=== PATIENT | female | born 1990 | race Caucasian/White ===

== ENCOUNTER 2018-03-29 07:06 | Inpatient (IN) ==
[2018-03-29] MEDS ORDERED: LIDOCAINE 1% (10mg/ml) 2mL INJ PF SDV ID PRN (07:07)
[2018-03-29] MEDS ORDERED: OXYTOCIN DRIP 30 UNIT/500 ML ML IV PRN (07:07)
[2018-03-29] MEDS ORDERED: MAG-AL + SIM ORAL LIQUID 30ml PO PRN (07:07)
[2018-03-29] MEDS ORDERED: METHYLERGONOVINE 0.2 MG/ML INJECTION IM PRN (07:07)
[2018-03-29] MEDS ORDERED: CARBOPROST 250 MCG/ML INJECTION IM PRN (07:07)
[2018-03-29] MEDS ORDERED: ACETAMINOPHEN 500 MG TABLET PO PRN ×2 (07:07→15:07)
[2018-03-29] MEDS ORDERED: D5LR 1,000 ML IV PRN (07:07)
[2018-03-29] MEDS ORDERED: CALCIUM CARBONATE Chewable 500mg TABLET PO PRN (07:07)
[2018-03-29] MEDS ORDERED: LR 1,000 ML IV PRN (07:07)
--- OUTSIDE RECORDS SUMMARY | 2018-03-29 07:10 | External Medical Summary | Continuity of Care Document ---
:1990 Author Organization [facility] Address [address] [place], [place] [id number] Phone Care Team Providers Name Role Phone Yelitza Fay DO Unavailable Unavailable Allergies, Adverse Reactions, Alerts Substance Reaction Severity Status benzonatate Rash Unknown Active Medications Medication Instructions Dosage Effective Dates Status Comments (start - stop) Zantac 150 mg take 1 tablet by 150 MG - Active tablet ORAL route every day 28 mg take 1 tablet by Not Available - Active iron-800 mcg tablet oral route every day fluticasone 50 spray 1 spray by - Active mcg/actuation nasal intranasal route spray,suspension every day in each nostril Tums 200 mg calcium - Active (500 mg) chewable tablet Tylenol 325 mg take 1 tablet by - Active tablet oral route every 4 hours as needed as needed omeprazole 10 mg take 2 capsule by 20 MG - Active capsule,delayed oral route every release day before a meal Problems Condition Effective Dates (start - stop) Clinical Status 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) w/o abn findings Follow-Up, Routine - Encounter for suprvsn of normal - , second trimester 19 weeks gestation of - Routine Care, Primagravida 36 weeks gestation of - History of gastric restrictive surgery Pap Smear Screening, Cervix - Encounter for suprvsn of normal - , first trimester 10 weeks gestation of - Encounter for suprvsn of normal - , second trimester 14 weeks gestation of - Mastitis w/out abscess Encounter for initial prescription of other contraceptives Encounter for test, result - negative Enc for surveillance of implantable subdermal contraceptive Encounter for surveillance of other - contraceptives Routine Care, Primagravida 37 weeks gestation of - History of gastric restrictive surgery Routine Care, Primagravida 40 weeks gestation of - History of gastric restrictive surgery Routine Care, Primagravida 39 weeks gestation of - History of gastric restrictive surgery Routine Care, Primagravida 38 weeks gestation of - History of gastric restrictive surgery Encounter for suprvsn of normal - , second trimester 19 weeks gestation of - Active Irregular Bleeding Active Procedures Procedure Date OB Visit No Charge - [facility]SM CONSULTANT Results Test Name Date and Time Measure Units Reference Range Abnormal Flag Comments Unknown Advance Directives Directive Yes / No Effective Date File Name Unknown Encounters Encounter Practice Location Reason(s) Diagnoses Date Provider Care Team Description For Visit Members Roshan Avalos Encounter for Nov-0 Pamella Referring In Womens suprvsn of normal 3-201 Jeanie. Provider: Alexander RAHMAN, , second [address], [address] [email or web address] weeks Medical [address], gestation of [facility] [place], [place], [place], 120, [place], [id number], [place], [address]. [place], tel: tel: [phone] , [place]. tel: [phone] Roshan Avalos Encounter for Nov-0 Pamella Referring In Womens Ultrasound suprvsn of normal 3-201 Jeanie. Provider: Alexander RAHMAN, , second [address], [address] [email or web address] weeks Medical [address], gestation of [facility] [place], [place], [place], 120, [place], [id number], [place], [address]. [place], tel: tel: [phone] , [place]. tel: [phone] Roshan Avalos Encounter for Nov-2 Pamella Referring In Womens suprvsn of normal 9-201 Jeanie. Provider: Health LACEY, , second [address] [email or web address] weeks Medical [address], gestation of [facility] [place], Darren Ad[place], 120, [place], [id number], [place], [address]. [place], tel: tel:[phone] , [place]. tel: [phone] Roshan Avalos Pap Smear Nov-0 Pamella Referring In Womens Screening, 1-201 Jeanie. Provider: Alexander RAHMAN, CervixEncounter [address], PO Box for suprvsn of Medical [address], normal , [facility] [place], first [id number] Darren [place], weeks gestation 120, [place], [id number], [place], [address]. [place], tel: tel: [phone] [facility] , [place]. tel: [phone] Roshan Avalos Enc for Tee-1 Pamella Referring In Womens surveillance of 9-201 Ejanie. Provider: Alexander RAHMAN, implantable [address], PO Box subdermal Medical [address], contraceptiveEnco [facility] [place], unter for [place], surveillance of 120, [place], [id number], [place], [address]. [place] contrace[place]ives [place], tel: tel: [phone] , [place]. tel: [phone] Roshan Avalos Mastitis w/out May-2 Pamella Referring In Womens abscess 6-201 Jeanie. Provider: Alexander RAHMAN, [address], PO Box Medical [address], [facility] [place], [place], [place], 120, [place], [id number], [place], [address]. [place], tel: tel: [phone] , . 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 Provider: Alexander RAHMAN, (routine) w/o abn [address], PO Box findings Medical [address], Center [address] Tori, [place], [place], 120, [place], [id number], [place], [address]. [place], tel: tel: [phone] , [place]. tel: [phone] Roshan Avalos Sep-0 Martínez Referring In Womens 7-201 [place]. Provider: Alexander RAHMAN, [address], PO Box Medical [address], [address] Tori, [place], [place], 120, [place], [id number], [place], [address]. [place], tel: tel: [phone] , [place]. tel: [phone] Roshan Avalos Encounter for Dec-3 Pamella Referring In Womens initial 0-201 Jeanie. Provider: Alexander RAHMAN, prescription of [address], PO Box other Medical [address], contraceptivesEnc Center Carriage arcenio [address]le for , [place], [place], test, 120, [place], [id number], [place], [address]. [place], tel: tel: [phone] , [place]. tel: [phone] Roshan Avalos Dec-1 Pamella Referring In Womens Follow-Up, 4-201 Jeanie. Provider: Alexander RAHMAN, Routine [address], PO Box Medical [address], Center [address] Tori, [place], [place], 120, [place], [id number], [place], [address]. [place], tel: tel: [phone] , [place]. tel: [phone] Roshan Avalos Routine Care, Nov-0 Pamella Referring In Womens [id number] 5-201 Jeanie. Provider: Health [place], weeks gestation 5 [address], [address] Box of Medical [address], pregnancyHistory Center Carriage [address], [address] [place], restrictive 120, [place], [id number], [place], [address]. [place], tel:+ tel: [phone] , [place]. tel: [phone] Roshan Avalos Routine Care, Oct-2 Pamella Referring In Womens [id number] 7-201 Jeanie. Provider: Health LACEY, weeks gestation 5 [address], PO Box of Medical [address], pregnancyHistory Center [facility] [address], [address] [place], restrictive 120, [place], [id number], [place], [address]. [place], tel:+ tel: [phone] , [place]. tel: [phone] Roshan Avalos Routine Care, Aug-2 Pamella Referring In Womens [id number] 0-201 Jeanie. Provider: Health LACEY, weeks gestation 5 [address], PO Box of Medical [address], pregnancyHistory [address] [facility]riage [address], [address] [place], restrictive 120, [place], , [place], [address]. [place], tel:+ tel: [phone] , [place]. tel: [phone] Roshan Avalos Routine Care, Aug- Pamella Referring In Womens [id number] 3-201 Jeanie. Provider: Health LACEY, weeks gestation 5 [address], PO Box of Medical [address], pregnancyHistory [facility]riage [address], [address] [place] [place], restrictive 120, [place], [id number], [place], [address]. [place], tel:+ tel: [phone] , [place]. tel: [phone] Roshan Avalso Routine Care, Oct-0 Pamella Referring In Womens [id number] 6-201 Jeanie. Provider: Health LACEY, weeks gestation 5 [address], PO Box of Medical [address], pregnancyHistory Center [facility] [place], [facility] , Darren Lemus, [place], restrictive 120, [place], [id number], [place], [address]. [place], tel: tel: [phone] , [place]. tel: [phone] Roshan Avalos Sep-2 Pamella Referring In Womens 2-201 Jeanie. Provider: Alexander RAHMAN, 5 700 Jeanie PO Box Medical Pamella L, 15[address], Center [address], [facility], 120, [place] , [facility] 120, [place], tel: [phone] [place], , [place]. [id number]. tel: tel: [phone] Roshan Avalos Sep-1 [place] Referring In Womens 0-201 Rosemary. Provider: Alexander RAHMAN, 5 700 Jeanie PO Box Medical Pamella L, 1522, Center [address], [facility], 120, [place] , [facility] 120, [place], tel: [phone] [place], , [place]. [id number]. tel: tel: [phone] Roshan Avalos Apr-0 Pamella Referring In Womens 8-201 Jeanie. Provider: Health LACEY, [address], PO Box Medical [address], [address] Tori, [place], [place], 120, [place], [id number], [place], [address]. [facility], tel:+ tel: [phone] , [place]. tel: [phone] Family History Family Member Diagnosis Age At Onset Maternal Grandmother Diabetes mellitus No family history of Venous Thrombosis Brother Thyroid Disorder No family history of Epilepsy No family history of Pulmonary Embolism Maternal Grandmother Leukemia No family history of Colon Cancer Mother Thyroid Disorder No family history of Kidney Disease No family history of Lung Disease No family history of Ovarian Cancer No family history of Osteoporosis Paternal Grandfather Diabetes mellitus No family history of Uterine Cancer No family history of Breast Cancer No family history of Stroke No family history of Hypertension No family history of Cardiovascular Disease Paternal Grandmother Brain tumor Immunizations Vaccine Date Status Comments Influenza, injectable, completed Source: Other Provider quadrivalent, preservative free, 3 yrs or older Influenza, seasonal, injectable, completed Source: New Immunization Record preservative free, 3 yrs or older Tdap completed Source: New Immunization Record Payers Payer name Insurance type Covered alliance party ID Authorization(s) [employer] - Medicaid MC [id number] [facility] [id number] [facility] [id number] Social History Type Description Quantity Date Captured Alcohol Use Details No Caffeine Use Details Unknown Tobacco Use Status Smoking Status Former smoker Vital Signs Date / Height Weight BMI Pulse Blood Temperature Respiratory Body Head BMI Time: Rate Pressure Rate Surface Circumference percentile Area 202.60 29.9 101/74 -2018 lbs 2 mm[Hg] 10:40 kg/m AM eter (2) 202.60 29.9 -2018 lbs 2 10:40 kg/m AM eter (2) Chief Complaint And Reason For Visit Unknown Chief Complaint And Reason For Visit Reason For Referral Reason For Referral Unknown Plan Of Care Date Type Action Status Goal Lifestyle education regarding completed diet Appointment Lora [place] BOOKED Future Order: Radiology Order Complete OB Ultrasound > 14 Ordered Weeks (12291) Future Order: Lab Order Pap Smear With HPV Reflex If Ordered ASCUS (WPMPap1) Date Type Problem Goal Intervention Status Start Date Unknown. History Of Present Illness Encounter Date Complaint History Of Present Illness This patient has no known history of present illness Functional Status Encounter Date Functional Assessment Cognitive Assessment Unknown Medications Administered Medication Instructions Dosage Effective Dates (start - stop) Status Comments Drug Treatment Unknown Instructions Date Instruction Additional Information HIV and other routine tests risk factors identified by history anticipated course of care nutrition and weight gain counseling, special diet toxoplasmosis precautions (cats / raw meat) sexual activity exercise indications for ultrasound influenza vaccine environmental / work hazards travel illicit / recreational drugs use of any medications (including supplements, vitamins, herbs, OTC drugs) domestic violence seat belt use childbirth classes / hospital facilities hospital registration genetic testing Giving encouragement to exercise Related to Body mass index 30.0-30.9 Giving encouragement to exercise Related to Body mass index 29.0-29.9 Lifestyle education regarding diet Related to Body mass index 29.0-29.9 nutrition and weight gain counseling, special diet toxoplasmosis precautions (cats / raw meat) sexual activity exercise indications for ultrasound influenza vaccine environmental / work hazards travel tobacco (ask, advise, assess, assist and arrange) alcohol illicit / recreational drugs use of any medications (including supplements, vitamins, herbs, OTC drugs) smoking counseling domestic violence seat belt use childbirth classes / hospital facilities HIV and other routine tests risk factors identified by history anticipated course of care hospital registration genetic testing new ob handbook
--- OUTSIDE RECORDS SUMMARY | 2018-03-29 07:10 | External Medical Summary | Continuity of Care Document ---
:1990 Author Organization [email or web address] Address [address] [place], [place] [phone] Phone Care Team Providers Name Role Phone Yelitza Fay DO Unavailable Unavailable Allergies, Adverse Reactions, Alerts Substance Reaction Severity Status benzonatate Rash Unknown Active Medications Medication Instructions Dosage Effective Dates Status Comments (start - stop) fluticasone 50 spray 1 spray by Not Available - Active mcg/actuation nasal intranasal route spray,suspension every day in each nostril Tylenol Extra take 2 tablet by 1000 MG - Active Strength 500 mg oral route every 6 tablet hours as needed Tums 200 mg calcium - Active (500 mg) chewable tablet [place] 5 mg-325 mg take 1 tablet by Not Available - Active tablet oral route every 6 hours as needed for pain Problems Condition Effective Dates (start - stop) Clinical Status 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) - (routine) w/o abn findings Follow-Up, Routine - Enc for surveillance of implantable subdermal contraceptive Encounter for surveillance of other - contraceptives Routine Care, Primagravida 36 weeks gestation of - History of gastric restrictive surgery Mastitis w/out abscess Encounter for initial prescription of other contraceptives Encounter for test, result - negative Routine Care, Primagravida 37 weeks gestation of - History of gastric restrictive surgery Routine Care, Primagravida 40 weeks gestation of - History of gastric restrictive surgery Routine Care, Primagravida 39 weeks gestation of - History of gastric restrictive surgery Routine Care, Primagravida 38 weeks gestation of - History of gastric restrictive surgery Active Irregular Bleeding Active Procedures Procedure Date Remove n-biodgrad drug del implant No Charge Office Visit Results Test Name Date and Time Measure Units Reference Range Abnormal Flag Comments Unknown Advance Directives Directive Yes / No Effective Date File Name Unknown Encounters Encounter Practice Location Reason(s) Diagnoses Date Provider Care Team Description For Visit Members Roshan Avalos Nexplanon Enc for Pamella Referring In Womens removal surveillance of Jeanie. Provider: Alexander RAHMAN, (chief implantable [address], PO Box complaint) subdermal Medical [address], contraceptiveEncoun Center [facility]riage [place] for , [place], [place], surveillance of 120, [place], , [place], [address]. [place] contrace[place]ives [place], tel:+ tel: [phone] , [place]. tel: [phone] Roshan Staples w/out Pamella Referring In Womens abscess 6-201 Jeanie. Provider: Alexander RAHMAN, [address], PO Box Medical [address], [address] Tori, [place], [place], 120, [place], , [place], [address]. [place], tel:+ tel: [phone] , [place]. 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 Provider: Alexander RAHMAN, w/o abn findings [address], PO Box Medical [address], [address] Tori, [facility] [place], [place], 120, [place], , [place], [address]. [place], tel:+ tel:[phone] , [place]. tel: [phone] Roshan Avalos Sep-0 Martínez Referring In Womens 7-201 [place]. Provider: Alexander RAHMAN, [address], PO Box Medical [address], Center [address] Tori, [place], [place], 120, [place], [id number], [place], [address]. [place], tel:+ tel: [phone] , [place]. tel: [phone] Roshan Avalos Encounter for Dec-3 Pamella Referring In Womens initial 0-201 Jeanie. Provider: Alexander RAHMAN, prescription of [address], PO Box other Medical [address], contraceptivesEncou Center [facility]riage [place], nter for , Darren [place], test, result 120, [place], [id number], [place], [address]. [place], tel:+ tel: [phone] , [place]. tel: [phone] Roshan Avalos Dec-1 Pamella Referring In Womens Follow-Up, Routine 4-201 Jeanie. Provider: Alexander RAHMAN, [address], PO Box Medical [address], Center [address] Tori, [place], [place], 120, [place], [id number], [place], [address]. [place], tel: tel: [phone] , [place]. tel: [phone] Roshan Avalos Routine Care, Nov-0 Pamella Referring In Womens [id number] 5-201 Jeanei. Provider: Alexander RAHMAN, weeks gestation of 5 [address], PO Box pregnancyHistory of Medical [address], gastric restrictive [facility] [place], surgery , [place], [place], 120, [place], [id number], [place], [address]. [place], tel: tel: [phone] , [place]. tel: [phone] Roshan Avalos Routine Care, Oct-2 Pamella Referring In Womens [id number] 7-201 Jeanie. Provider: Alexander RAHMAN, weeks gestation of [address], PO Box pregnancyHistory of Medical [address], gastric restrictive [facility] [place], surgery , [place], [place], 120, [place], [id number], [place], [address]. [place], tel:+ tel: [phone] , [place]. tel: [phone] [facility] [place] Routine Care, Oct-2 Pamella Referring In Womens [id number] 0-201 Jeanie. Provider: Alexander RAHMAN, weeks gestation of 5 [address], PO Box [facility] [address], gastric restrictive [facility] [place], surgery , [place], [place], 120, [place], [id number], [place], [address]. [place], tel:+ tel: [phone] , [place]. tel: [phone] Roshan Avalos Routine Care, Oct-1 Pamella Referring In Womens [id number] 3-201 Jeanie. Provider: Alexander RAHMAN, weeks gestation of 5 [address], PO Box pregnancyHistory of [facility] [address], gastric restrictive [facility] Carriage [place], surgery , [place], [place], 120, [place], [id number], [place], [address]. [place], tel:+ tel: [phone] , [place]. tel: [phone] Roshan Avalos Routine Care, Oct-0 Pamella Referring In Womens [id number] 6-201 Jeanie. Provider: Alexander RAHMAN, weeks gestation of [address], PO Box pregnancyHistory of [facility] [address], gastric restrictive [facility]riage [place], surgery , [place], [place], 120, [place], [id number], [place], [address]. [place], tel:+ tel: [phone] , [place]. tel: [phone] Roshan Avalos Sep-2 Pamella Referring In Womens 2-201 Jeanie. Provider: Alexander RAHMAN, 5 700 Jeanie PO Box Medical Pamella L, 1522, Center [address] [place], Dr, [facility], 120, [place] [id number], [facility] 120, [place], tel: [phone] [place], , [place]. [id number]. tel: tel: [phone] [facility] [place] Jul- Tata Referring In Womens 0-201 Rosemary. Provider: [facility], 5 700 Jeanie [facility] Pamella L, 1522, Center [address], [facility], 120, [place] [id number], [facility] 120, [place], tel: [phone] [place], , [place]. [id number]. tel: tel: [phone] [facility] [place] Feb- Pamella Referring In Womens 8-201 Jeanie. Provider: [facility], [address], [facility] [address], [place] [address], [place], [place], 120, [place], [id number], [place], [address]. [place], tel: tel: [phone] , [place]. tel: [phone] Family History Family Member Diagnosis Age At [...] tumor Immunizations Vaccine Date Status Comments Influenza, seasonal, injectable, completed Source: New Immunization Record preservative free, 3 yrs or older Tdap completed Source: New Immunization Record Payers Payer name Insurance type Covered alliance party ID Authorization(s) [employer] - Medicaid MC [id number] [facility] [id number] [facility] [id number] Social History Type Description Quantity Date Captured Alcohol Use Details Unknown Caffeine Use Details Unknown Tobacco Use Status Smoking Status Former smoker Vital Signs Date / Height Weight BMI Pulse Blood Temperature Respiratory Body Head BMI Time: Rate Pressure Rate Surface Circumference percentile Area 70.00 212.70 30.5 74 107/70 2017 in lbs 2 /min mm[Hg] 1:24 kg/m PM eter (2) Chief Complaint And Reason For Visit Most recent encounter only, dated '05/24/2017 13:15'. Nexplanon removal ( chief complaint). Description: Patient needs routine follow-up for contraception. Her current method of contraception is Nexplanon. She is not having any problems. She pleased withher current method of contraception. She had gonorrhea and chlamydia cultures (Neg/Neg) on 02/11/2015. There are no pertinent negatives. She'd like to conceive again. Reviewed removal procedure, potential risks. Encouraged folic acid supplement. Reason For Referral Reason For Referral Unknown Plan Of Care Date Type Action Status Goal Lifestyle education regarding diet completed Future Order: Lab Order Pap Smear With HPV Reflex If ASCUS Ordered (WPMPap1) Date Type Problem Goal Intervention Status Start Date Unknown. History Of Present Illness Encounter Date Complaint History Of Present Illness Nexplanon removal Patient needs routine follow-up for contraception. Her current method of contraception is Nexplanon. She is not having any problems. She pleased with her current method of contraception. She had gonorrhea and chlamydia cultures (Neg/Neg) on 02/11/2015. There are no pertinent negatives. She'd like to conceive again. Reviewed removal procedure, potential risks. Encouraged folic acid supplement. Functional Status Encounter Date Functional Assessment Cognitive Assessment Unknown Medications Administered Medication Instructions Dosage Effective Dates (start - stop) Status Comments Drug Treatment Unknown Instructions Date Instruction Additional Information Giving encouragement to exercise Related to Body [...]
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
--- OUTSIDE RECORDS SUMMARY | 2018-03-29 07:11 | External Medical Summary | Continuity of Care Document ---
:1990 Author Organization [facility] Address [address] [place], [place] [id number] Phone Care Team Providers Name Role Phone Yelitza Fay DO Unavailable Unavailable Allergies, Adverse Reactions, Alerts Substance Reaction Severity Status benzonatate Rash Unknown Active Medications Medication Instructions Dosage Effective Dates Status Comments (start - stop) fluticasone 50 spray 1 spray by Not Available - Active mcg/actuation intranasal route nasal every day in each spray,suspension nostril Tylenol Extra take 2 tablet by 1000 MG - Active Strength 500 mg oral route every tablet 6 hours as needed Tums 200 mg - Active calcium (500 mg) chewable tablet [place] 5 mg-325 mg take 1 tablet by Not Available - Active tablet oral route every 6 hours as needed for pain Nexplanon 68 mg As Prescribed - No Longer subdermal implant Active Problems Condition Effective Dates (start - stop) Clinical Status 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 (general) - (routine) w/o abn findings Follow-Up, Routine - Enc for surveillance of implantable subdermal contraceptive Encounter for surveillance of other - contraceptives Routine Care, Primagravida 36 weeks gestation of - History of gastric restrictive surgery Encounter for initial prescription of other contraceptives Encounter for test, result - negative Mastitis w/out abscess Routine Care, Primagravida 37 weeks gestation of - History of gastric restrictive surgery 38 weeks gestation of - Routine Care, Primagravida History of gastric restrictive surgery Routine Care, Primagravida 39 weeks gestation of - History of gastric restrictive surgery Routine Care, Primagravida History of gastric restrictive surgery 40 weeks gestation of - Active Irregular Bleeding [...] Pamella Referring In Womens removal surveillance of - Jeanie. Provider: Alexander RAHMAN, (chief implantable [address], [address] complaint) subdermal Medical [address], contraceptiveEncoun [facility] Carriage [place] for , [place], [place], surveillance of 120, [place], , [place], [address]. [place] contraceptives [place], tel:+ tel: [phone] , [place]. tel: [phone] Roshan Avalos Mastitis w/out March- Pamella Referring In Womens abscess 6-201 Jeanie. Provider: Alexander RAHMAN, 7 [address] Box Medical [address], [address] Tori, [place], [place], [address], [place], [id number], [place], [address]. [place], tel: tel: [phone] , [place]. 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 Provider: Alexander RAHMAN, w/o abn findings [address] PO Box Medical [address], [address] Tori, [place], [place], [address], [place], [id number], [place], [address]. [place], tel:+ tel: [phone] , [place]. tel: [phone] Roshan Avalos Sep-0 Martínez Referring In Womens 7-201 [place]. Provider: Alexander RAHMAN, [address], PO Box Medical [address], [address]i, [place], [address], [place], [id number], [place], [address]. [place], tel:+ tel: [phone] , [place]. tel: [phone] Roshan Avalos Encounter for Dec-3 Pamella Referring In Womens initial 0-201 Jeanie. Provider: Alexander RAHMAN, prescription of [address], [address] other Medical [address], contraceptivesEncou Center Carriage aimee Valleer for [place], test, result 120, [place], , [place], [address]. [place], tel: tel: [phone] , [place]. tel: [phone] Roshan Avalos Dec-1 Pamella Referring In Womens Follow-Up, Routine 4-201 Jeanie. Provider: Alexander RAHMAN, [address], PO Box Medical [address], [address], [place], [address], [place], [id number], [place], [address]. [place], tel:+ tel: [phone] , [place]. tel: [phone] Roshan Avalos Routine Care, Nov-0 Pamella Referring In Womens PrimagravidaHistory 5-201 Jeanie. Provider: Alexander RAHMAN, of gastric [address], PO Box restrictive Medical [address], [id number] weeks Center Carriage [place], gestation of [place], [address], [place], , [place], [address]. [place], tel:+ tel: [phone] , [place]. tel: [phone] Roshan Avalos Routine Care, Oct-2 Pamella Referring In Womens [id number] 7-201 Jeanie. Provider: Health PA, weeks gestation of [address], PO Box pregnancyHistory of Medical [address], gastric restrictive [address], [place], [place], [address], [place], [id number], [place], [address]. [place], tel:+ tel:+ [phone] , [place]. tel: [phone] Roshan Avalos 38 weeks gestation Oct-2 Pamella Referring In Womens of pregnancyRoutine 0-201 Jeanie. Provider: Health PA, Care, [address], [address] PrimagravidaHistory Medical [address], of gastric [facility] [place], restrictive surgery , [place], [place], [address], [place], , [place], [address]. [place], tel:+ tel: [phone] , [place]. tel: [phone] Roshan Avalos Routine Care, Aug- Pamella Referring In Womens [id number] 3-201 Jeanie. Provider: Health PA, weeks gestation of [address], PO Box pregnancyHistory of Medical [address], gastric restrictive [address], [place], [place], [address], [place], [id number], [place], [address]. [place], tel:+ tel: [phone] , [place]. tel: [phone] Roshan Avalos Routine Care, Oct-0 Pamella Referring In Womens [id number] 6-201 Jeanie. Provider: Health LACEY, weeks gestation of [address] PO Box pregnancyHistory of Medical [address], gastric restrictive [address], [place], [address], [place], [id number], [place], [address]. [place], tel:+ tel:+ [phone] , [place]. tel: [phone] Roshan Avalos Sep-2 Pamella Referring In Womens 2-201 Jeanie. Provider: Health LACEY, 5 700 [address]ie Box Medical Pamella L, [address], [address], [facility], 120, [place] [id number], [place], [facility] 120, [place], tel:+ [phone] [place], , [place]. [id number]. tel: tel: [phone] Associates [place] Jul- Tata Referring In Womens 0-201 Rosemary. Provider: Health LACEY, 5 700 [facility] Box Medical Pamella L, [address], Center [address], [facility], 120, [place] [id number], [facility] 120, [place], tel: [phone] [place], , [place]. [id number]. tel: tel: [phone] Associates [place] Feb-0 Pamella Referring In Womens 8-201 Jeanie. Provider: Health LACEY, [address], [facility] Medical [address], [address], [place], [place], [address], [place], [id number], [place], [address]. [facility], tel: tel: [phone] , [place]. tel: [phone] Family History Family Member Diagnosis Age At [...] Record Payers Payer name Insurance type Covered constitution party ID Authorization(s) [employer] - Medicaid MC [id number] [facility] [id number] [facility] [id number] Social History Type Description Quantity Date Captured Alcohol Use Details Unknown Caffeine Use Details Unknown Tobacco Use Status Smoking Status Former smoker Vital Signs Date / Height Weight BMI Pulse Blood Temperature Respiratory Body Head BMI Time: Rate Pressure Rate Surface Circumference percentile Area 70.00 212.70 30.5 74 107 in lbs 2 /min mm[Hg] 1:24 kg/m [...]
--- OUTSIDE RECORDS SUMMARY | 2018-03-29 07:11 | External Medical Summary | Continuity of Care Document ---
:1990 Author Organization [facility] Address [address] [place], [place] [id number] Phone Care Team Providers Name Role Phone Yelitza Fay DO Unavailable Unavailable Allergies, Adverse Reactions, Alerts Substance Reaction Severity Status benzonatate Rash Unknown Active Medications Medication Instructions Dosage Effective Dates Status Comments (start - stop) Zofran 4 mg tablet take 1 tablet by 4 MG - Active ORAL route every 8 hours as needed for nausea Zantac 150 mg take 1 tablet by [...] (start - stop) Clinical Status Encntr for operations developer exam (general) - (routine) w/o abn findings Follow-Up, Routine - Encounter for suprvsn of normal - , third trimester 30 weeks gestation of - Routine Care, Primagravida 36 weeks gestation of - History of gastric restrictive surgery Pap Smear Screening, Cervix - Encounter for suprvsn of normal - , first trimester 10 weeks gestation of - Encounter for suprvsn of normal - , second trimester 14 weeks gestation of - Encounter for suprvsn of normal - , second trimester 19 weeks gestation of - Mastitis w/out abscess [...] suprvsn of normal - , second trimester 25 weeks gestation of - Encounter for suprvsn of normal - , second trimester 23 weeks gestation of - Encounter for suprvsn of normal - , second trimester 19 weeks gestation of - Encounter for suprvsn of normal - , third trimester 32 weeks gestation of - Encounter for suprvsn of normal - , third trimester 28 weeks gestation of - Active Irregular Bleeding Active Procedures Procedure Date OB Visit No Charge Results Test Name Date and Time Measure Units Reference Range Abnormal Flag Comments Unknown Advance Directives Directive Yes / No Effective Date File Name Unknown Encounters Encounter Practice Location Reason(s) Diagnoses Date Provider Care Team Description For Visit Members Roshan [place] Encounter for Soy Referring In Womens suprvsn of normal 4-201 Lewis. 700 Provider: Health PA, , third 8 Medical Jeanie PO Box weeks Center Pamella L, 1522, gestation of , Darren 700 [place], 120, [facility] [id number] [place], [facility] 120, [place] [id number] [place], tel: , [place]. [place], tel: [phone] tel:[phone] Roshan [place] Encounter for Mar-2 Pamella Referring In Womens suprvsn of normal 1-201 Jeanie. Provider: Health PA, , third [address], PO Box [id number] weeks Medical 8[address] 1522, gestation of Center Carriage [place], Darren Adler, [place], 120, [place], , [place], [address]. [place], tel: tel: [phone] , [place]. tel: [phone] Roshan [place] Encounter for Mar-0 Pamella Referring In Womens suprvsn of normal 7-201 Jeanie. Provider: Health PA, , third [address], PO Box [id number] weeks Medical 818 [address] 1522, gestation of Center Carriage [place], Darren Adler, [place], 120, [place], , [place], [address]. [place], tel: tel: [phone] , [place]. tel: [phone] Roshan [place] Encounter for Feb-1 Pamella Referring In Womens suprvsn of normal 4-201 Jeanie. Provider: Health PA, , second [address], PO Box [id number] weeks Medical [address] 1522, gestation of Center Carriage [place], Darren Adler, [place], 120, [place], , [place], [address]. [place], tel: tel: [phone] , [place]. tel: [phone] Roshan [place] Feb-1 Pamella In Womens 2-201 Jeanie. Health PA, 8 700 PO Box Medical 1522, [facility], [facility], 120, [id number], [place], [place], tel: [phone] , [place]. tel: [phone] Roshan [place] Encounter for Jaguar-3 Pamella Referring In Womens suprvsn of normal 1-201 Jeanie. Provider: Health LACEY, , second 8 700 [address], PO Box weeks Medical [address] 1522, gestation of Center Carriage [place], , Darren Lemus [place], 120, [place], [id number], [place], [address]. [place], tel:+ tel: [phone] , [place]. tel: [phone] Roshan [place] Encounter for Jaguar-0 Pamella Referring In Womens suprvsn of normal 3-201 Jeanie. Provider: Health LACEY, , second 8 [address], PO Box [id number] weeks Medical [address] 1522, gestation of Center Carriage [place], Darren Adler [place], 120, [place], [id number], [place], [address]. [place], tel: tel:[phone] , [place]. tel: [phone] Roshan [place] Encounter for Jaguar-0 Pamella Referring In Womens Ultrasound suprvsn of normal 3-201 Jeanie. Provider: Health LACEY, , second 8 700 [address], PO Box [email or web address] weeks Medical [address] 1522, gestation of Center Carriage [place], Darren [place]ler [place], 120, [place], [id number], [place], [address]. [place], tel: tel: [phone] , [place]. tel: [phone] Roshan [place] Encounter for Nov-2 Pamella Referring In Womens suprvsn of normal 9-201 Jeanie. Provider: Health PA, , second [address], PO Box [id number] weeks Medical [address] 1522, gestation of Center Carriage [place], Darren [place]ler [place], 120, [place], [id number], [place], [address]. [place], tel: tel: [phone] , [place]. tel: [phone] Roshan [place] Pap Smear Nov-0 Pamella Referring In Womens Screening, 1-201 Jeanie. Provider: Alexander RAHMAN, CervixEncounter [address], PO Box for suprvsn of Medical [address], normal , Center Carriage [place], first [email or web address] , [place], weeks gestation 120, [place], [id number], [place], [address]. [place], tel: tel: [phone] , [place]. tel: [phone] Roshan [place] Enc for May- Pamella Referring In Womens surveillance of 9-201 Jeanie. Provider: Alexander RAHMAN, implantable 7 700 [address], PO Box subdermal Medical [address], contraceptiveEnco Center Carriage [place], unter for [place], [place], surveillance of 120, [place], , [place], [address]. [place] contraceptives [place], tel: tel: [phone] , [place]. tel: [phone] Roshan [place] Mastitis w/out March- Pamella Referring In Womens abscess 6-201 Jeanie. Provider: Alexander RAHMAN, 7 700 [address], PO Box Medical [address], Center Carriage Dr Tori, Darren Lemus [place], 120, [place], [id number], [place], [address]. [place], tel: tel: [phone] , [place]. tel: [phone] Roshan [place] Encntr for operations developer Nov- Pamella Referring In Womens exam (general) 3-201 Jeanie. Provider: Alexander RAHMAN, (routine) w/o abn 7 700 [address], PO Box findings Medical [address], Center Carriage Dr Tori, [place], [place], 120, [place], [id number], [place], [address]. [place], tel: tel: [phone] , [place]. tel: [phone] Roshan [place] Sep-0 Martínez Referring In Womens 7-201 [place]. Provider: Alexander RAHMAN, [address], PO Box Medical [address], Center Carriage Dr Tori, Darren Lemus [place], 120, [place], [id number], [place], [address]. [place], tel:+ tel: [phone] , [place]. tel: [phone] Roshan [place] Encounter for Dec-3 Pamella Referring In Womens initial 0-201 Jeanie. Provider: Health LACEY, prescription of [address], PO Box other Medical [address] 1522, contraceptivesEnc Center Carriage arcenio Valle for Darren [place], test, 120, [place], , [place], [address]. [place], tel: tel:[phone] , [place]. tel: [phone] Roshan [place] Dec-1 Pamella Referring In Womens Follow-Up, 4-201 Jeanie. Provider: Alexander RAHMAN, Routine [address], PO Box Medical [address], Center Carriage Dr Tori, Darren [place]us [place], 120, [place], , [place], [address]. [place], tel:+ tel: [phone] , [place]. tel: [phone] Roshan [place] Routine Care, Nov-0 Pamella Referring In Womens [id number] 5-201 Jeanie. Provider: Health LACEY, weeks gestation [address], PO Box of Medical [address], pregnancyHistory Center Carriage [place], of gastric Darren Adler [place], restrictive 120, [place], , [place], [address]. [place], tel:+ tel: [phone] , [place]. tel: [phone] Roshan [place] Routine Care, Oct-2 Pamella Referring In Womens [id number] 7-201 Jeanie. Provider: Health LACEY, weeks gestation 5 700 [address], PO Box of Medical [address], pregnancyHistory Center Carriage glen Valle gastric [place], restrictive 120, [place], [id number], [place], [address]. [place], tel:+ tel: [phone] , [place]. tel: [phone] Roshan [place] Routine Care, Oct-2 Pamella Referring In Womens [id number] 0-201 Jeanie. Provider: Health LACEY, weeks gestation 5 700 [address], PO Box of Medical [address], pregnancyHistory Center Carriage [address], [address], restrictive 120, [place], [id number], [place], [address]. [place], tel:+ tel: [phone] , [place]. tel: [phone] Roshan [place] Routine Care, Aug- Pamella Referring In Womens [id number] 3-201 Jeanie. Provider: Health LACEY, weeks gestation 5 700 [address], PO Box of Medical [address], pregnancyHistory Center [address]riage [address], restrictive 120, [place], , [place], [address]. [place], tel:+ tel: [phone] , [place]. tel: [phone] Roshan [place] Routine Care, Oct-0 Pamella Referring In Womens [id number] 6-201 Jeanie. Provider: Health LACEY, weeks gestation 5 700 [address], PO Box of Medical [address], pregnancyHistory Center Carriage Tori Dar[place], [place], restrictive 120, [place], , [place], [address]. [place], tel:+ tel: [phone] , [place]. tel: [phone] Roshan [place] Sep-2 Pamella Referring In Womens 2-201 Jeanie. Provider: Health LACEY, 5 700 Jeanie Box Medical Pamella L, 1522, Center [address] Tori, [facility], 120, [place] [id number], [facility], [place], tel:[phone] [place], , . [id number]. tel: tel: [phone] [facility] Referring In Womens 0-201 Rosemary. Provider: Health LACEY, 5 700 Jeanie Box Medical Pamella L, 1522, Center [address] Dr Tori, [facility], 120, [place] [id number], [facility], [place], tel: [phone] [place], , [place]. [id number]. tel: tel: [phone] [facility] [place] Feb- Pamella Referring In Womens 8-201 Jeanie. Provider: Health LACEY, 5 700 [address], [facility] Medical [address], Center Carriage Dr Tori, [facility], [place], 120, [place], [id number], [place], [address]. [place], tel: tel: [phone] , [place]. tel: [phone] Family History Family Member Diagnosis Age At [...] Brain tumor Immunizations Vaccine Date Status Comments Tdap completed Source: New Immunization Record Influenza, injectable, completed Source: Other Provider quadrivalent, preservative free, 3 yrs or older Influenza, seasonal, injectable, completed Source: New Immunization Record preservative free, 3 yrs or older Tdap completed Source: New Immunization Record Payers Payer name Insurance type Covered libertarian ID Authorization(s) [employer] - Medicaid [place] [id number] [employer] - Medicaid [place] [id number] [facility] [id number] [facility] [id number] Social History Type Description Quantity Date Captured Alcohol Use Details No Caffeine Use Details Unknown Tobacco Use Status Smoking Status Former smoker Vital Signs Date / Height Weight BMI Pulse Blood Temperature Respiratory Body Head BMI Time: Rate Pressure Rate Surface Circumference percentile Area Unknown Chief Complaint And Reason For Visit Unknown Chief Complaint And Reason For Visit Reason For Referral Reason For Referral Unknown Plan Of Care Date Type Action Status Goal Lifestyle education regarding completed diet Appointment Lora Phoenix BOOKED Appointment Lora Phoenix BOOKED Future Order: Radiology Order Complete OB Ultrasound > 14 Ordered Weeks ([id number]) Future Order: Lab Order Pap Smear With [...]
--- OUTSIDE RECORDS SUMMARY | 2018-03-29 07:11 | External Medical Summary | Referral Summary ---
:1990 Author Organization [facility] [address] [place] [address] Care Team Providers Name Role Phone Yelitza Fay Primary Care Physician Encounter VC Date(s): 11/23/16 - 11/23/16 [facility] [address] [place] [id number]- Discharge Diagnosis: Depression, major, recurrent, moderate Discharge Diagnosis: Anxiety Discharge Disposition: 01-Home or Self Care Attending Physician: Yelitza Fay DO Admitting Physician: Yelitza Fay DO Vital Signs Most recent to oldest [Reference Range]: 1 Temperature Tympanic [36.6-38.1 degC] 37.0 degC (11/23/16 3:51 PM) Peripheral Pulse Rate [60-100 bpm] 87 bpm (11/23/16 3:51 PM) Respiratory Rate [14-20 br/min] 16 br/min (11/23/16 3:51 PM) Blood Pressure [90-140/60-90 mmHg] 102/62 mmHg (11/23/16 3:51 PM) SpO2 99 % (11/23/16 3:51 PM) Problem List Condition Effective Dates Status Health Status Informant Allergic rhinitis, Active seasonal(Confirmed) Anxiety(Confirmed) Resolved Allergic conjunctivitis(Confirmed) Active Depression(Confirmed) Active Sun exposure, high(Confirmed) Active GERD(Confirmed) Active Hypertension(Confirmed) Active Depression, major, recurrent, Active moderate(Confirmed) Seizure disorder(Confirmed) Active Chicken pox(Confirmed) Active Allergies, Adverse Reactions, Alerts Substance Reaction Severity Status benzonatate Active Medications fluticasone 50 mcg/inh nasal spray sprays, Nasal, Daily, 0 Refill(s) Start Date: 04/24/14 Status: Orderedibuprofen 0 Refill(s) Start Date: 02/26/16 Status: OrderedNexplanon mg, SubCutaneous, Once, 0 Refill(s) Start Date: 11/23/16 Status: Orderedsertraline 50 mg oral tablet 50 mg 1 tabs, Oral, Daily, # 30 tabs, 2 Refill(s), Pharmacy: [facility] # [id number], 1 tabs Oral Daily Start Date: 11/23/16 Status: Ordered Results No data available for this section Immunizations Given and Recorded Vaccine Date Status Refusal Reason tetanus/diphth/pertuss (Tdap) adult/adol 08/02/13 Recorded hepatitis B adult vaccine 08/14/12 Given human papillomavirus vaccine 10/02/13 Given human papillomavirus vaccine 08/02/13 Given influenza virus vaccine, inactivated 08/08/14 Recorded influenza virus vaccine, live 08/02/13 Given influenza virus vaccine, live 08/14/12 Given Procedures Procedure Date Related Diagnosis Body Site Laparoscopic cholecystectomy 12/26/14 gastric sleeve 08/12/13 nerve reconnected pinky finger, right 2000 wisdom teeth extraction Social History Social History Type Response Smoking Status Former smoker Assessment and Plan Extracted from: Title: Office Visit Note Author: Yelitza Fay DO Date: 11/23/16 Assessment/Plan Anxiety Ordered: Office Visit Level 3 Est 31306 Depression, major, recurrent, moderate Ordered: Office Visit Level 3 Est 53014 At this time we'll go ahead and start the patient on some sertraline at a small dose of 50 mg. She'll return to clinic in 6 weeks for reevaluation. Patient shouldcall with problems prior.
--- OUTSIDE RECORDS SUMMARY | 2018-03-29 07:11 | External Medical Summary | Continuity of Care Document ---
:1990 Author Organization [facility] Address [address] [place], [place] [id number] Phone Care Team Providers Name Role Phone Yelitza Fay DO Unavailable Unavailable Allergies, Adverse Reactions, Alerts Substance Reaction Severity Status benzonatate Rash Unknown Active Medications Medication Instructions Dosage Effective Dates Status Comments (start - stop) amoxicillin 500 mg take 1 capsule by - Active capsule ORAL route every 12 hours x 10 days 28 mg take 1 tablet by Not Available - Active iron-800 mcg tablet oral route every day fluticasone 50 spray 1 spray by Not Available - Active mcg/actuation nasal intranasal route spray,suspension every day in each nostril Tums 200 mg calcium - Active (500 mg) chewable tablet Problems Condition Effective Dates (start - stop) Clinical Status 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 findings Follow-Up, Routine - Pap Smear Screening, Cervix - Encounter for suprvsn of normal - , first trimester 10 weeks gestation of - Routine Care, Primagravida [...] Active Irregular Bleeding Active Procedures Procedure Date Pap Smear handling/transport Initial OB Visit No 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 Results Test Name Date and Time Measure Units Reference Range Abnormal Flag Comments Panel Description: OBSTETRIC PANEL WHITE BLOOD CELL 7.7 Thousand/uL 3.8-10.8 N COUNT 16:30:00 RED BLOOD CELL 4.55 Million/uL 3.80-5.10 N COUNT 16:30:00 HEMOGLOBIN 13.4 g/dL 11.7-15.5 N 16:30:00 HEMATOCRIT 38.8 % 35.0-45.0 N 16:30:00 MCV 85.3 fL 80.0-100.0 N 16:30:00 MCH 29.5 pg 27.0-33.0 N 16:30:00 MCHC 34.5 g/dL 32.0-36.0 N 16:30:00 RDW 13.1 % 11.0-15.0 N 16:30:00 PLATELET COUNT 206 Thousand/uL 140-400 N 16:30:00 MPV 12.1 fL 7.5-12.5 N 16:30:00 ABSOLUTE 5544 cells/uL 1605-9655 N NEUTROPHILS 16:30:00 ABSOLUTE 1555 cells/uL 850-3900 N LYMPHOCYTES 16:30:00 ABSOLUTE 470 cells/uL 200-950 N MONOCYTES 16:30:00 ABSOLUTE 92 cells/uL 15-500 N EOSINOPHILS 16:30:00 ABSOLUTE 39 cells/uL 0-200 N BASOPHILS 16:30:00 NEUTROPHILS 72 % N 16:30:00 LYMPHOCYTES 20.2 % N 16:30:00 MONOCYTES 6.1 % N 16:30:00 EOSINOPHILS 1.2 % N 16:30:00 BASOPHILS 0.5 % N 16:30:00 ANTIBODY SCREEN, NO ANTIBODIES N RBC W/REFL ID, 16:30:00 DETECTED Reference range TITER AND AG No antibodies detected This assay is a screening test for the detection of red blood cell antibodies. The test is not to be used for pretransfusion screening or for the medical management of an alloimmunized . ABO GROUP AB 16:30:00 RH TYPE RH(D) 16:30:00 POSITIVE RPR (DX) W/REFL NON-REACTIVE NON-REACTIV N TITER AND 16:30:00 E CONFIRMATORY TESTING HEPATITIS B NON-REACTIVE NON-REACTIV N SURFACE ANTIGEN 16:30:00 E RUBELLA ANTIBODY 2.85 index N Index (IGG) 16:30:00 Interpretation ----- <0.90 Not consistent with Immunity 0.90-0.99 Equivocal > or=1.00 Consistent with Immunity The presence of rubella IgG antibody suggests immunization or past or current infection withrubella virus.Test performed at [facility] [id number] [place] [address]Nhixrnl r: BRUNO TELLES DO,MPH Panel Description: HIV 1/2 ANTIGEN/ANTIBODY,FOURTH GENERATION W/RFL HIV NON-REACTIVE NON-REACTIVE N HIV-1 antigen and HIV-1/HIV- 2 antibodies were AG/AB, 16:30:00 notdetected. There is no laboratory evidence of 4TH GEN HIVinfection. PLEASE NOTE: This information has been disclosed toyou from records whose confidentiality may beprotected by state law. If your state requires suchprotection, then the state law prohibits you frommaking any further disclosure of the informationwithout the specific written consent of the personto whom it pertains, or as otherwise permitted by law.A general authorization for the release of medical orother information is NOT sufficient for this purpose. For additional information please refer [email or web address](This link is being provided for informational/educational purposes only.) The performance of this assay has not been clinicallyvalidated in patients less than 2 years old. REPORT COMMENT:FASTING:NOTest performed at [facility] [address] [address]Ibsmovez: BRUNO TELLES DO,MPH Panel Description: Bacteria identified in Urine by Culture CULTURE, URINE, SEE NOTE A CULTURE, URINE, ROUTINE MICRO ROUTINE 16:33:00 NUMBER: [id number] TEST STATUS: PRELIMINARY SPECIMEN SOURCE: URINE SPECIMEN QUALITY: ADEQUATE RESULT: Greater than 100,000 CFU/mL of Escherichia coli , susceptibility test report to follow.REPORT COMMENT:RFASTING:UNKNOWNTest performed at [facility] [address] [address]Jibhjfbm: BRUNO TELLES DO,MPH Panel Description: Bacteria identified in Urine by Culture CULTURE, URINE, SEE NOTE A CULTURE, URINE, ROUTINE MICRO ROUTINE 16:33:00 NUMBER: [id number] TEST STATUS: FINAL SPECIMEN SOURCE: URINE SPECIMEN QUALITY: ADEQUATE RESULT: Greater than 100,000 CFU/mL of Escherichia coli E.coli INT ANASTACIA AMOX/CLAVULANATE S <=2 AMPICILLIN S 4 AMP/SULBACTAM S <=2 CEFAZOLIN NR <=4 1 CEFEPIME S <=1 CEFTRIAXONE S <=1 CIPROFLOXACIN S <=0.25 ERTAPENEM S <=0.5 GENTAMICIN S <=1 IMIPENEM S <=0.25 LEVOFLOXACIN S <=0.12 NITROFURANTOIN S <=16 PIP/TAZOBACTAM S <=4 TOBRAMYCIN S <=1 TRIMETHOPRIM/SULFA S <=20S=Susceptible I=Intermediate R=Resistant *=Not TestedNR=Not Reported NN=See Therapy CommentsTHERAPY COMMENTS Note 1: ORAL therapy: A cefazolin ANASTACIA of < 32 predicts susceptibility to the oral agents cefaclor, cefdinir, cefpodoxime, cefprozil, cefuroxime, cephalexin, and loracarbef when used for therapy of uncomplicated UTIs due to E. coli, K. pneumoniae, and P. mirabilis. PARENTERAL therapy: A cefazolin ANASTACIA of > 8 indicates resistance to parenteral cefazolin. An alternate test method must be performed to to confirm susceptibility to parenteral cefazolin.REPORT COMMENT:RFASTING:UNKNOWNTest performed at [facility] [address] [address]Ihxiqiua: BRUNO TELLES DO,MPH Panel Description: CHLAMYDIA/N. GONORRHOEAE RNA, TMA CHLAMYDIA NOT DETECTED NOT DETECTED N TRACHOMATIS RNA, 16:35:00 TMA NEISSERIA NOT DETECTED NOT DETECTED N GONORRHOEAE RNA, 16:35:00 TMA [id number] SEE NOTE This test was 16:35:00 performed using the APTPalindromX COMBO2 Assay([employer] The analytical performance characteristics of this assay, when used to test SurePath specimens havebeen determined by [employer]. REPORT COMMENT:FASTING:UNKNO WNTest performed at [facility] [address] [address]Xxwgoate: BRUNO TELLES DO,MPH Panel Description: Pap Smear With HPV Reflex If ASCUS Document Pap Smear 15:45:00 See scanned report Advance Directives Directive Yes / No Effective Date File Name Unknown Encounters Encounter Practice Location Reason(s) Diagnoses Date Provider Care Team Description For Visit [facility] [place] Nov-0 Pamella In Womens 3-201 Jeanie. Alexander RAHMAN, [address] [facility] [address] [place], [address], [id number], [place], [facility], tel:[phone] , [place]. tel: [phone] Roshan [place] Pap Smear Sep-0 Pamella Referring In Womens Screening, 1-201 Jeanie. Provider: Wanda SerranoEncjorge albertoer for 7 [address], [address] suprvsn [facility] [address], , first Center Carriage [place], [id number] weeks [place]ren [place], gestation of 120, [place], [id number], [place], [address]. [facility], tel:+ tel: [phone] , [place]. tel: [phone] Roshan [place] Enc for Pamella Referring In Womens surveillance of Jeanie. Provider: Alexander RAHMAN, implantable [address], PO [address] subdermal Medical [address], contraceptiveEncoun Center Carriage [place] for , [place], [place], surveillance of 120, [place], [id number], [place], [address]. [place] contraceptives [place], tel: tel: [phone] , [place]. tel: [phone] Roshan [place] Mastitis w/out March- Pamella Referring In Womens abscess - Jeanie. Provider: Alexander RAHMAN, [address], PO [address] Medical [address], [address], [place], [place], 120, [place], , [place], [address]. [place], tel: tel:[phone] , [place]. 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 Provider: Alexander RAHMAN, w/o abn findings [address], PO [address] Medical [address], [address], [place], [place], 120, [place], , [place], [address]. [place], tel: tel: [phone] , [place]. tel: [phone] Roshan [place] Sep-0 Martínez Referring In Womens - [place]. Provider: Alexander RAHMNA, [address], PO [address] Medical [address], [address], [place], [place], 120, [place], [id number], [place], [address]. [place], tel: tel: [phone] , [place]. tel: [phone] Roshan [place] Encounter for Pamella Referring In Womens initial 0-201 Jeanie. Provider: Health [place], prescription of [address], [address] other Medical [address], contraceptivesEncou Center Carriage aimee Val[place] for , [place], test, result 120, [place], [id number], [place], [address]. [place], tel:+ tel: [phone] , [place]. tel: [phone] Roshan [place] Oct- Pamella Referring In Womens Follow-Up, Routine 4-201 Jeanie. Provider: Alexander RAHMAN, [address], PO [address] Medical [address], [address], [place], [place], 120, [place], [id number], [place], [address]. [place], tel:+ tel: [phone] , [place]. tel: [phone] Roshan [place] Routine Care, Nov- Pamella Referring In Womens [id number] 5-201 Jeanie. Provider: Alexander RAHMAN, weeks gestation of [address], PO Box pregnancyHistory of Medical [address], gastric restrictive Center [address], [place], 120, [place], [id number], [place], [address]. [place], tel: tel: [phone] , [place]. tel: [phone] Roshan [place] Routine Care, Pamella Referring In Womens [id number] 7-201 Jeanie. Provider: Alexander RAHMAN, weeks gestation of [address], PO Box pregnancyHistory of Medical [address], gastric restrictive Center Carriage [address], [place], [place], 120, [place], [id number], [place], [address]. [place], tel:+ tel: [phone] , [place]. tel: [phone] Roshan [place] Routine Care, Pamella Referring In Womens [id number] 0-201 Jeanie. Provider: Health LACEY, weeks gestation of 5 [address] PO Box pregnancyHistory of [facility] [address], gastric restrictive [facility] [place], surgery , [place], [place], 120, [place], [id number], [place], [address]. [place], tel: tel: [phone] , [place]. tel: [phone] Roshan [place] Routine Care, Pamella Referring In Womens [id number] 3-201 Jeanie. Provider: Health LACEY, weeks gestation of 5 [address], PO Box pregnancyHistory of [facility] [address], gastric restrictive [facility] [place], surgery , [place], [place], 120, [place], [id number], [place], [address]. [place], tel: tel: [phone] , [place]. tel: [phone] Roshan [place] Routine Care, Pamella Referring In Womens [id number] 6-201 Jeanie. Provider: Alexander RAHMAN, weeks gestation of 5 [address], PO Box pregnancyHistory of [facility] [address], gastric restrictive [facility] [place], [place], [place], 120, [place], [id number], [place], [address]. [place], tel: tel: [phone] , [place]. tel: [phone] Roshan [place] Sep-2 Pamella Referring In Womens 2-201 Jeanie. Provider: Alexander RAHMAN, 5 700 Jeanie PO Box Medical Pamella L, [address], [address], [facility], 120, [place] , [place] [facility] 120, [place], tel: [phone] [place], , [place]. [id number]. tel: tel: [phone] Roshan [place] Sep-1 Holdeman Referring In Womens 0-201 Rosemary. Provider: Health [place], 5 700 Jeanie PO Box Medical Pamella L, [address], [address], [facility], 120, [place] [id number], [facility], [place], [place], tel: [phone] [place], , [place]. [id number]. tel: tel: [phone] Roshan [place] Apr-0 Pamella Referring In Womens 8-201 Jeanie. Provider: Health LACEY, [address], Box Medical [address], [address], [place], [place], 120, [place], [id number], [place], [address]. [facility], tel: tel: [phone] , [place]. tel: [phone] Family History Family Member Diagnosis Age At [...] Record Payers Payer name Insurance type Covered democrat ID Authorization(s) [employer] [place] [employer] - Medicaid MC [id number] [facility] [id number] [facility] [id number] Social History Type Description Quantity Date Captured Alcohol Use Details No Caffeine Use Details Unknown Tobacco Use Status Smoking Status Former smoker Smoking Tobacco Use Cigarette: No Details Available Cigarette: No Details Available Details Vital Signs Date / Height Weight BMI Pulse Blood Temperature Respiratory Body Head BMI Time: Rate Pressure Rate Surface Circumference percentile Area 203.90 30.1 127/82 -2017 lbs 1 mm[Hg] 3:55 kg/m PM eter (2) Chief Complaint And Reason For Visit Unknown Chief Complaint And Reason For Visit Reason For Referral Reason For Referral Unknown Plan Of Care Date Type Action Status Goal Lifestyle education regarding diet completed Appointment Lora [place] BOOKED Future Order: Lab Order Pap Smear With [...]
--- OUTSIDE RECORDS SUMMARY | 2018-03-29 07:11 | External Medical Summary | Referral Summary ---
:1990 Author Organization [facility], [place] [place] [address] Care Team Providers Name Role Phone Yelitza Fay Primary Care Physician Encounter VC Date(s): 06/30/17 - 06/30/17 [facility] [address] [place] [phone] [place] Discharge Diagnosis: Physical exam, pre-employment Discharge Disposition: 01-Home or Self Care Attending Physician: Yelitza Fay DO Admitting Physician: Yelitza Fay DO Vital Signs Most recent to oldest [Reference Range]: 1 Temperature Tympanic [36.6-38.1 degC] 36.6 degC (06/30/17 1:54 PM) Peripheral Pulse Rate [60-100 bpm] 78 bpm (06/30/17 1:54 PM) Blood Pressure [90-140/60-90 mmHg] 116/86 mmHg (06/30/17 1:54 PM) SpO2 99 % (06/30/17 1:54 PM) Problem List Condition Effective Dates Status Health Status Informant Allergic rhinitis, Active seasonal(Confirmed) Anxiety(Confirmed) Resolved Allergic conjunctivitis(Confirmed) Active Depression(Confirmed) Active Sun exposure, high(Confirmed) Active GERD(Confirmed) Active Hypertension(Confirmed) Active Depression, major, recurrent, Active moderate(Confirmed) Seizure disorder(Confirmed) Active Chicken pox(Confirmed) Active Allergies, Adverse Reactions, Alerts Substance Reaction Severity Status benzonatate Active Medications cyclobenzaprine 10 mg oral tablet 10 mg 1 tabs, Oral, TID, as needed for spasm, # 30 tabs, 0 Refill(s), Pharmacy: [facility] #[id number], 1 tabs Oral TID,PRN:as needed for spasm Start Date: 03/29/17 Status: Orderedfluticasone 50 mcg/inh nasal spray 1-2 sprays, Nasal, Daily, as needed, # 1 Each, 1 Refill(s), Pharmacy: [facility] #[id number] Start Date: 01/05/17 Status: Orderedibuprofen 0 Refill(s) Start Date: 02/26/16 Status: Orderedsertraline 50 mg oral tablet 50 mg 1 tabs, Oral, Daily, # 30 tabs, 2 Refill(s), Pharmacy: [facility] # [id number], 1 tabs Oral Daily Start Date: 03/29/17 Status: Ordered Immunizations Given and Recorded Vaccine Date Status Refusal Reason influenza virus vaccine, inactivated 08/08/14 Recorded human papillomavirus vaccine 10/02/13 Given human papillomavirus vaccine 08/02/13 Given influenza virus vaccine, live 08/02/13 Given influenza virus vaccine, live 08/14/12 Given tetanus/diphth/pertuss (Tdap) adult/adol 08/02/13 Recorded hepatitis B adult vaccine 08/14/12 Given Procedures Procedure Date Related Diagnosis Body Site Laparoscopic cholecystectomy 12/26/14 gastric sleeve 08/12/13 nerve reconnected pinky finger, right 2000 wisdom teeth extraction Social History Social History Type Response Smoking Status Former smoker Assessment and Plan Extracted from: Title: Office Visit Note Author: Yelitza Fay DO Date: 06/30/17 Physical exam, pre-employment Form filled out and provided to patient, TB test given today, return to clinic as needed. Ordered: Periodic Comp Preventive Med 18 to 39 years Est [id number]
--- OUTSIDE RECORDS SUMMARY | 2018-03-29 07:11 | External Medical Summary | Referral Summary ---
:1990 Author Organization [facility] [address] [place] [address] Care Team Providers Name Role Phone Yelitza Fay Primary Care Physician Encounter VC Date(s): 02/26/16 - 02/26/16 [facility] [address] [place] [phone] [place] Discharge Disposition: 01-Home or Self Care Attending Physician: Kwan Peterson APRN Admitting Physician: Kwan Peterson APRN Vital Signs Most recent to oldest [Reference Range]: 1 Temperature Tympanic [36.6-38.1 degC] 36 degC *LOW* (02/26/16 10:08 AM) Peripheral Pulse Rate [60-100 bpm] 96 bpm (02/26/16 10:08 AM) Systolic Blood Pressure [90-140 mmHg] 112 mmHg (02/26/16 10:08 AM) SpO2 96 % (02/26/16 10:08 AM) Problem List Condition Effective Dates Status Health Status Informant Allergic rhinitis, Active seasonal(Confirmed) Anxiety(Confirmed) Resolved Allergic conjunctivitis(Confirmed) Active Depression(Confirmed) Active Sun exposure, high(Confirmed) Active GERD(Confirmed) Active Hypertension(Confirmed) Active Seizure disorder(Confirmed) Active Chicken pox(Confirmed) Active Allergies, Adverse Reactions, Alerts Substance Reaction Severity Status benzonatate Active Medications amoxicillin 500 mg oral tablet 500 mg 1 tabs, Oral, TID, X 10 days, # 30 tabs, 0 Refill(s), Pharmacy: [facility] #[id number], 1 tabs Oral TID,x10 days Start Date: 02/26/16 Stop Date: 03/07/16 Status: Orderedfluticasone 50 mcg/inh nasal spray sprays, Nasal, Daily, 0 Refill(s) Start Date: 04/24/14 Status: Orderedibuprofen 0 Refill(s) Start Date: 02/26/16 Status: Ordered Results No data available for [...] Smoking Status Former smoker Assessment and Plan No data available for this section
--- OUTSIDE RECORDS SUMMARY | 2018-03-29 07:11 | External Medical Summary | Continuity of Care Document ---
:1990 Author Organization [facility] Address [address] [place], [place] [id number] Phone Care Team Providers Name Role Phone Yelitza Fay DO Unavailable Unavailable Allergies, Adverse Reactions, Alerts Substance Reaction Severity Status benzonatate Rash Unknown Active Medications Medication Instructions Dosage Effective Dates Status Comments (start - stop) 28 mg take 1 tablet by Not Available - Active iron-800 mcg tablet oral route every day fluticasone 50 spray 1 spray by Not Available - Active mcg/actuation nasal intranasal route spray,suspension every day in each nostril Tylenol 325 mg take 1 tablet by - Active tablet oral route every 4 hours as needed as needed omeprazole 10 mg take 2 capsule by 20 MG - Active capsule,delayed oral route every release day before a meal Tums 200 mg calcium - Active (500 mg) chewable tablet Problems Condition Effective Dates (start - stop) Clinical Status 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) w/o 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 findings Follow-Up, Routine - Encounter for suprvsn of normal - , second trimester 14 weeks gestation of - Routine Care, Primagravida 36 weeks gestation of - History of gastric restrictive surgery Pap Smear Screening, Cervix - Encounter for suprvsn of normal - , first trimester 10 weeks gestation of - Mastitis w/out abscess [...] Procedure Date OB Visit No 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 Provider: Health LACEY, , second [address], [address] [email or web address] weeks Medical [address], gestation of Center Carriage [place], [place], 120, [place], [id number], [place], [address]. [place], tel:+ tel: [phone] , [place]. tel: [phone] Roshan [place] Pap Smear Pamella Referring In Womens Screening, 201 Jeanie. Provider: Alexander RAHMAN, CervixEncounter for [address], PO Box suprvsn of normal Medical [address], , first [facility]riage [place], weeks [place], gestation of 120, [place], [id number], [place], [address]. [place], tel:+ tel: [phone] , [place]. tel: [phone] Roshan [place] Enc for Pamella Referring In Womens surveillance of 9-201 Jeanie. Provider: Health LACEY, implantable [address], PO Box subdermal Medical [address], contraceptiveEncoun Center Carriage [place], ter for [place], surveillance of 120, [place], [id number], [place], [address]. [place] contraceptives [place], tel: tel: [phone] , [place]. tel: [phone] Roshan Staples w/out March-2 Pamella Referring In Womens abscess 6-201 Jeanie. Provider: Alexander RAHMAN, [address], PO Box Medical [address], Center Carriage [address] Tori, [facility] [place] [place], 120, [place], [id number], [place], [address]. [place], tel: tel:[phone] , [place]. 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 Provider: Alexander RAHMAN, w/o abn findings [address], PO Box Medical [address], Center Carriage Dr Tori, [place], 120, [place], [id number], [place], [address]. [place], tel: tel: [phone] , [place]. tel: [phone] Roshan [place] Sep-0 Martínez Referring In Womens 7-201 [place]. Provider: Alexander RAHMAN, [address], PO Box Medical [address], Center Carriage [address] Tori, [facility] [place], 120, [place], [id number], [place], [address]. [place], tel: tel: [phone] , [place]. tel: [phone] Roshan [place] Encounter for Dec-3 Pamella Referring In Womens initial 0-201 Jeanie. Provider: Alexander RAHMAN, prescription of [address], PO Box other Medical [address], contraceptivesEncou Center Carriage jovanna Valle for , Darren Lemus [place], test, result 120, [place], [id number], [place], [address]. [place], tel:[phone] tel: [phone] , [place]. tel: [phone] Roshan [place] Dec- Pamella Referring In Womens Follow-Up, Routine 4-201 Jeanie. Provider: Alexander RAHMAN, [address], PO Box Medical [address], Center Carriage [address] Tori, [place], [place], 120, [place], , [place], [address]. [place], tel: tel: [phone] , [place]. tel: [phone] Roshan [place] Routine Care, Nov-0 Pamella Referring In Womens [id number] 5-201 Jeanie. Provider: Alexander RAHMAN, weeks gestation of [address], PO Box pregnancyHistory of Medical [address], gastric restrictive Center Carriage [place], rosalia Adler, Darren [place], [place], 120, [place], , [place], [address]. [place], tel: tel: [phone] , [place]. tel: [phone] Roshan [place] Routine Care, Aug- Pamella Referring In Womens [id number] 7-201 Jeanie. Provider: Alexander RAHMAN, weeks gestation of [address], PO Box pregnancyHistory of Medical [address], gastric restrictive Center Carriage [address], Darren [place], [place], 120, [place], , [place], [address]. [place], tel: tel: [phone] , [place]. tel: [phone] Roshan [place] Routine Care, Oct-2 Pamella Referring In Womens [id number] 0-201 Jeanie. Provider: Alexander RAHMAN, weeks gestation of [address], PO Box pregnancyHistory of Medical [address], gastric restrictive Center Carriage [address], Darren [place], [place], 120, [place], , [place], [address]. [place], tel: tel: [phone] , [place]. tel: [phone] Roshan [place] Routine Care, Aug- Pamella Referring In Womens [id number] 3-201 Jeanie. Provider: Alexander RAHMAN, weeks gestation of [address], PO Box pregnancyHistory of [facility] [address], gastric restrictive Center Carriage [place], surgery , [place], [place], 120, [place], [id number], [place], [address]. [place], tel: tel: [phone] , [place]. tel: [phone] Roshan [place] Routine Care, Aug-0 Pamella Referring In Womens [id number] 6-201 Jeanie. Provider: Alexander RAHMAN, weeks gestation of [address], PO Box pregnancyHistory of [facility] [address], gastric restrictive Center Carriage [place], surgery , [place], 120, [place], [id number], [place], [address]. [place], tel: tel: [phone] , [place]. tel: [phone] Roshan [place] Sep-2 Pamella Referring In Womens 2-201 Jeanie. Provider: Alexander RAHMAN, 5 700 Jeanie PO Box Medical Pamella L, 1522, Center [address], [facility], 120, [place] [id number], [facility], [place], tel: [phone] [place], , [place]. [id number]. tel: tel: [phone] Roshan [place] Sep-1 Holdeman Referring In Womens 0-201 Rosemary. Provider: Alexander RAHMAN, 5 700 Jeanie PO Box Medical Pamella L, 1522, Center [address], [facility], 120, Center [id number], [facility] 120, [place], tel: [phone] [place], , [place]. [id number]. tel: tel: [phone] Associates [place] Pamella Referring In Womens 8-201 Jeanie. Provider: Alexander RAHMAN, 5 700 [address] [facility] [address], Center Carriage [address] Tori, Darren Lemus [place], 120, [place], [id number], [place], [address]. [place], tel: tel: [phone] , [place]. tel: [phone] Family History Family Member Diagnosis Age At [...] Record Payers Payer name Insurance type Covered republican ID Authorization(s) [employer] - Medicaid MC [id number] [facility] [id number] [facility] [id number] Social History Type Description Quantity Date Captured Alcohol Use Details No Caffeine Use Details Unknown Tobacco Use Status Smoking Status Former smoker Vital Signs Date / Height Weight BMI Pulse Blood Temperature Respiratory Body Head BMI Time: Rate Pressure Rate Surface Circumference percentile Area 200.80 29.6 / lbs 5 mm[Hg] 11:01 kg/m AM eter (2) Chief Complaint And Reason For Visit Unknown Chief Complaint And Reason For Visit Reason For Referral Reason For Referral Unknown Plan Of Care Date Type Action Status Goal Lifestyle education regarding diet completed Appointment Lora Phoenix BOOKED Appointment Lora Phoenix BOOKED Future Order: Lab [...]
--- OUTSIDE RECORDS SUMMARY | 2018-03-29 07:12 | External Medical Summary | Continuity of Care Document ---
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 Provider: Health PA, , third [address], PO Box [email or web address] weeks Medical [address], gestation of Center Carriage [place], Darren [place], [place], 120, [place], [id number], [place], [address]. [place], tel: tel: [phone] , [place]. tel: [phone] Roshan [place] Encounter for Apr-1 Pamella Referring In Womens suprvsn of normal 8-201 Jeanie. Provider: Health [place], , third [address], PO Box [email or web address] weeks Medical [address], gestation of Center Carriage [place], Darren [place], [place], 120, [place], , [place], [address]. [place], tel: tel: [phone] , [place]. tel: [phone] Roshan [place] Encounter for Apr-0 Soy Referring In Womens suprvsn of normal 4-[address] [place] [facility] Provider: Health PA, , third 8 Medical Jeanie PO Box [email or web address] weeks [place] Pamella L, 1522, gestation of [place]ren [place], 120, Medical [place], [facility] , [place], [facility] 120, [id number] [place], tel: , [place]. [place], tel: [phone] tel:[phone] Roshan [place] Encounter for Mar-2 Pamella Referring In Womens suprvsn of normal 1-201 Jeanie. Provider: Health PA, , third [address], PO Box [email or web address] weeks Medical [address], gestation of Center Carriage [place], Darren [place], [place], 120, [place], [id number], [place], [address]. [place], tel: tel: [phone] , [place]. tel: [phone] Roshan [place] Encounter for Mar-0 Pamella Referring In Womens suprvsn of normal 7-201 Jeanie. Provider: Health LACEY, , third [address], PO Box [email or web address] weeks Medical [address], gestation of Center Carriage [place], [place], 120, [place], [id number], [place], [address]. [place], tel:+ tel: [phone] , [place]. tel: [phone] Roshan [place] Encounter for Fe-1 Pamella Referring In Womens suprvsn of normal 4-201 Jeanie. Provider: Alexander RAHMAN, , second [address], PO Box [email or web address] weeks Medical [address], gestation of Center Carriage [place], [place], 120, [place], , [place], [address]. [place], tel:+ tel: [phone] , [place]. tel: [phone] Roshan [place] Feb-1 Pamella In Womens 2-201 Jeanie. Alexander RAHMAN, 8 700 PO Box Medical 1522, [place], [facility], 120, [id number], [place], [place], tel: [phone] , [place]. tel: [phone] Roshan [place] Encounter for Jaguar-3 Pamella Referring In Womens suprvsn of normal 1-201 Jeanie. Provider: Alexander RAHMAN, , second [address], PO Box weeks Medical [address], gestation of Center Carriage [place], Darren [place], [place], 120, [place], [id number], [place], [address]. [place], tel: tel: [phone] , [place]. tel: [phone] Roshan [place] Encounter for Jaguar-0 Pamella Referring In Womens suprvsn of normal 3-201 Jeanie. Provider: Alexander RAHMAN, , second [address], PO Box [email or web address] weeks Medical [address], gestation of Center Carriage [place], Darren [place], 120, [place], [id number], [place], [address]. [place], tel:+ tel: [phone] , [place]. tel: [phone] Roshan [place] Encounter for Jaguar-0 Pamella Referring In Womens Ultrasound suprvsn of normal 3-201 Jeanie. Provider: Health [place], , second [address], PO Box [id number] weeks Medical [address], gestation of Center Carriage [place], [place], 120, [place], [id number], [place], [address]. [place], tel:+ tel: [phone] , [place]. tel: [phone] Roshan [place] Encounter for Nov-2 Pamella Referring In Womens suprvsn of normal 9-201 Jeanie. Provider: Health LACEY, , second [address], PO Box [email or web address] weeks Medical [address], gestation of Center Carriage [place], Dar[place], 120, [place], [id number], [place], [address]. [place], tel:+ tel: [phone] , [place]. tel: [phone] Roshan [place] Pap Smear Nov-0 Pamella Referring In Womens Screening, 1-201 Jeanie. Provider: Health LACEY, CervixEncounter [address], PO Box for suprvsn of Medical [address], normal , Center Carriage [place], first [email or web address] [place], weeks gestation 120, [place], [id number], [place], [address]. [place], tel:+ tel: [phone] , [place]. tel: [phone] Roshan [place] Enc for Tee-1 Pamella Referring In Womens surveillance of 9-201 Jeanie. Provider: Health LACEY, implantable [address], PO Box subdermal Medical [address], contraceptiveEnco Center Carriage [place], unter for [place], [place], surveillance of 120, [place], , [place], [address]. [place] contrace[place]ives [place], tel:+ tel: [phone] , [place]. tel: [phone] Roshan [place] Mastitis w/out March-2 Pamella Referring In Womens abscess 6-201 Jeanie. Provider: Alexander RAHMAN, [address], PO Box Medical [address], Center Carriage [address] Tori, [place], [place], 120, [place], [id number], [place], [address]. [place], tel: tel: [phone] , [place]. 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 Provider: Health LACEY, (routine) w/o abn [address], PO Box findings Medical [address], Center Carriage [address] Tori, [place], [place], 120, [place], , [place], [address]. [place], tel: tel: [phone] , [place]. tel: [phone] Roshan [place] Sep-0 Mratínez Referring In Womens 7-201 [place]. Provider: Alexander RAHMAN, [address], PO Box Medical [address], Center Carriage [address] Tori, [place], [place], 120, [place], [id number], [place], [address]. [place], tel: tel: [phone] , [place]. tel: [phone] Roshan [place] Encounter for Dec-3 Pamella Referring In Womens initial 0-201 Jeanie. Provider: Alexander RAHMAN, prescription of [address], PO Box other Medical [address], contraceptivesEnc Center Carriage arcenio Valle for , [place], test, 120, [place], [id number], [place], [address]. [place], tel: tel: [phone] , [place]. tel: [phone] Rohsan [place] Dec- Pamella Referring In Womens Follow-Up, 4- Jeanie. Provider: Alexander RAHMAN, Routine [address], PO Box Medical [address], Center Carriage [address] [place], 120, [place], [id number], [place], [address]. [place], tel: tel: [phone] , [place]. tel: [phone] Roshan [place] Routine Care, Nov-0 Pamella Referring In Womens [id number] 5-201 Jeanie. Provider: Alexander RAHMAN, weeks gestation [address], PO Box of Medical [address], pregnancyHistory Center Carriage [address], [address] [place], restrictive 120, [place], , [place], [address]. [place], tel: tel: [phone] , [place]. tel: [phone] Roshan [place] Routine Care, Aug- Pamella Referring In Womens [id number] 7-201 Jeanie. Provider: Alexander RAHMAN, weeks gestation [address], PO Box of Medical [address], pregnancyHistory Center Carriage [address], [address] [place], restrictive 120, [place], , [place], [address]. [place], tel: tel: [phone] , [place]. tel: [phone] Roshan [place] Routine Care, Aug-2 Pamella Referring In Womens [id number] 0-201 Jeanie. Provider: Alexander RAHMAN, weeks gestation [address], PO Box of Medical [address], pregnancyHistory Center Carriage glen Valle gastric [place], restrictive 120, [place], [id number], [place], [address]. [place], tel: tel: [phone] , [place]. tel: [phone] Roshan [place] Routine Care, Pamella Referring In Womens [id number] 3-201 Jeanie. Provider: Alexander RAHMAN, weeks gestation [address], PO Box of Medical [address], pregnancyHistory Center Carriage [place], of gastric [place], restrictive 120, [place], [id number], [place], [address]. [place], tel: tel: [phone] , [place]. tel: [phone] Roshan [place] Routine Care, Aug- Pamella Referring In Womens [id number] 6-201 Jeanie. Provider: Alexander RAHMAN, weeks gestation [address], PO Box of Medical [address], pregnancyHistory Center Carriage [place], of gastric , [place], [place], restrictive 120, [place], [id number], [place], [address]. [place], tel: tel: [phone] , [place]. tel: [phone] Roshan [place] Sep-2 Pamella Referring In Womens 2-201 Jeanie. Provider: Alexander RAHMAN, 5 700 Jeanie PO Box Medical Pamella L, 1522, Center [address], [facility], 120, Center [id number], [facility], [place], tel: [phone] [place], , [place]. [id number]. tel: tel: [phone] Roshan [place] Sep-1 [place] Referring In Womens 0-201 Rosemary. Provider: Alexander RAHMAN, 5 700 Jeanie PO Box Medical Pamella L, 1522, Center [address], [facility], 120, Center [id number], [facility] 120, [place], tel: [phone] [place], , [place]. [id number]. tel: tel: [phone] Roshan [place] Pamella Referring In Womens 8-201 Jeanie. Provider: Alexander RAHMAN, 5 700 [address] [facility] [address], Center Carriage [address] Tori, [place], 120, [place], [id number], [place], [address]. [facility], tel: tel: [phone] , . tel: [phone] Family History Family Member Diagnosis Age At [...] Authorization(s) [employer] - Medicaid [place] [id number] [employer] - Medicaid MC [id number] [facility] [id number] [facility] [id number] Social History Type Description Quantity Date Captured Alcohol Use Details No Caffeine Use Details Unknown Tobacco Use Status Smoking Status Former smoker Vital Signs Date / Height Weight BMI Pulse Blood Temperature Respiratory Body Head BMI Time: Rate Pressure Rate Surface Circumference percentile Area 211.90 31.2 109/79 -2018 lbs 9 mm[Hg] 11:39 kg/m AM eter (2) Chief Complaint And Reason For Visit Unknown Chief Complaint And Reason For Visit Reason For Referral Reason For Referral Unknown Plan Of Care Date Type Action Status Goal Lifestyle education regarding completed diet Appointment Lora Phoenix BOOKED Appointment Lora Phoenix BOOKED Appointment Lora Phoenix BOOKED Future Order: Radiology Order Complete OB Ultrasound > 14 Ordered Weeks (41601) Future Order: Lab Order Pap Smear With [...]
--- OUTSIDE RECORDS SUMMARY | 2018-03-29 07:12 | External Medical Summary | Referral Summary ---
:1988 Author Organization [facility] [address] [place] [id number] Care Team Providers Name Role Phone Yelitza Fay Primary Care Physician Encounter VC Date(s): 03/22/16 - 03/22/16 [facility] [address] [place] [address]- Discharge Diagnosis: Acute low back pain Discharge Diagnosis: Allergic rhinitis, seasonal Discharge Disposition: 01-Home or Self Care Attending Physician: Yelitza Fay DO Admitting Physician: Yelitza Fay DO Vital Signs Most recent to oldest [Reference Range]: 1 Peripheral Pulse Rate [60-100 bpm] 72 bpm (03/22/16 1:02 PM) Respiratory Rate [14-20 br/min] 18 br/min (03/22/16 1:02 PM) Blood Pressure [90-140/60-90 mmHg] 120/72 mmHg (03/22/16 1:02 PM) SpO2 99 % (03/22/16 1:02 PM) Problem List Condition Effective Dates Status [...] Visit Note Author: Yelitza Fay DO Date: 03/22/16 Assessment/Plan Acute low back pain She doesn't wish any interventions at this time. She will let us know if this changes. Ordered: Office Visit Level 3 Est 35643 Allergic rhinitis, seasonal Continue fluticasone. Return to clinic as needed. Ordered: Office Visit Level 3 Est 22860
--- OUTSIDE RECORDS SUMMARY | 2018-03-29 07:12 | External Medical Summary | Referral Summary ---
:1988 Author Organization [facility] [place] [address] Care Team Providers Name Role Phone Yelitza Fay Primary Care Physician Encounter VC Date(s): 03/29/17 - 03/29/17 [facility] [place] [phone] [place] Discharge Diagnosis: Depression Discharge Diagnosis: Strain of muscle, fascia and tendon of lower back, initial encounter Discharge Disposition: 01-Home or Self Care Attending Physician: Yelitza Fay DO Admitting Physician: Yelitza Fay DO Vital Signs Most recent to oldest [Reference Range]: 1 Peripheral Pulse Rate [60-100 bpm] 84 bpm (03/29/17 3:33 PM) Blood Pressure [90-140/60-90 mmHg] 138/80 mmHg (03/29/17 3:33 PM) SpO2 99 % (03/29/17 3:33 PM) Problem List Condition Effective Dates Status [...] spasm, # 30 tabs, 0 Refill(s), Pharmacy: [facility] #[id number], 1 tabs Oral TID,PRN:as needed for spasm Start Date: 03/29/17 Status: Orderedfluticasone 50 mcg/inh nasal spray 1-2 sprays, Nasal, Daily, as needed, # 1 Each, 1 Refill(s), Pharmacy: [facility] #[id number] Start Date: 01/05/17 Status: Orderedibuprofen 0 Refill(s) Start Date: 02/26/16 Status: OrderedNexplanon mg, SubCutaneous, Once, 0 Refill(s) Start Date: 11/23/16 Status: Orderedsertraline 50 mg oral tablet 50 mg 1 tabs, Oral, Daily, # 30 tabs, 2 Refill(s), Pharmacy: [facility] # [id number], 1 tabs Oral Daily Start Date: 03/29/17 Status: Ordered Results No data available for [...] Visit Note Author: Yelitza Fay DO Date: 03/29/17 Assessment/Plan Depression Continue sertraline, return to clinic in6 months or sooner with problems. Ordered: Office Visit Level 4 Est 93503 Strain of muscle, fascia and tendon of lower back, initial encounter Flexeril prescribed today, advised to the sedative effects. Otherwise continue ibuprofen or Tylenol as well as heat or iceand relative rest. Ordered: Office Visit Level 4 Est 80923
--- OUTSIDE RECORDS SUMMARY | 2018-03-29 07:12 | External Medical Summary | Continuity of Care Document ---
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 Provider: Alexander RAHMAN, , second 8 [address], [address] [id number] weeks Medical [address] 1522, gestation of [place], [place], [place], 120, [place], [id number], [place], [address]. [place], tel: tel: [phone] , [place]. tel: [phone] Roshan Avalos Encounter for Nov-0 Pamella Referring In Womens Ultrasound suprvsn of normal 3-201 Jeanie. Provider: Alexander RAHMAN, , second [address], [address] [id number] weeks Medical 818 [address] 1522, gestation of [place], [place], 120, [place], [id number], [place], [address]. [place], tel: tel: [phone] , [place]. tel: [phone] Roshan Avalos Encounter for Nov-2 Pamella Referring In Womens suprvsn of normal 9-201 Jeanie. Provider: Health LACEY, , second [address], [address] [email or web address] weeks Medical 818 N 1522, gestation of [facility] [place], Darren [place]ler [place], 120, [place], [id number], [place], [address]. [place], tel: tel:[phone] , [place]. tel: [phone] Roshan Avalos Pap Smear Nov-0 Pamella Referring In Womens Screening, 1-201 Jeanie. Provider: Alexander RAHMAN, CervixEncounter [address], PO Box for suprvsn of Medical [address] 15[address], normal , [facility] [place], first [email or web address] Darren [place]ler [place], weeks gestation 120, [place], [id number], [place], [address]. [place], tel: tel: [phone] [facility] , [place]. tel: [phone] Roshan Avalos Enc for Tee-1 Pamella Referring In Womens surveillance of 9-201 Jeanie. Provider: Alexander RAHMAN, implantable [address], PO Box subdermal Medical [address] 15[address], contraceptiveEnco [facility]riage [place], unter for [place], surveillance of 120, [place], [id number], [place], [address]. [place] contraceptives [place], tel: tel: [phone] , [place]. tel: [phone] Roshan Avalos Mastitis w/out May-2 Pamella Referring In Womens abscess 6-201 Jeanie. Provider: Alexander RAHMAN, [address], PO Box Medical [address], [place], [place], 120, [place], [id number], [place], [address]. [place], tel: tel: [phone] , . 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 Provider: Alexander RAHMAN, (routine) w/o abn [address], PO Box findings Medical 8[address] 15[address], Center Carriage Dr Tori, [place], [place], 120, [place], [id number], [place], [address]. [place], tel: tel: [phone] , [place]. tel: [phone] Roshan Avalos Sep-0 Martínez Referring In Womens 7-201 [place]. Provider: Alexander RAHMAN, [address], PO Box Medical [address], Center Carriage Dr Tori, [place], [place], 120, [place], [id number], [place], [address]. [place], tel: tel: [phone] , [place]. tel: [phone] Roshan Avalos Encounter for Dec-3 Pamella Referring In Womens initial 0-201 Jeanie. Provider: Alexander RAHMAN, prescription of [address], PO Box other Medical [address] 15[address], contraceptivesEnc Center Carriage arcenio Valle for , [place], [place], test, 120, [place], [id number], [place], [address]. [place], tel: tel: [phone] , [place]. tel: [phone] Roshan Avalos Dec-1 Pamella Referring In Womens Follow-Up, 4-201 Jeanie. Provider: Alexander RAHMAN, Routine [address], PO Box Medical [address] 15[address], Center Carriage Dr Tori, [place], [place], 120, [place], [id number], [place], [address]. [place], tel: tel: [phone] , [place]. tel: [phone] Roshan Avalos Routine Care, Nov-0 Pamella Referring In Womens [id number] 5-201 Jeanie. Provider: Health PA, weeks gestation 5 700 [address], PO Box of Medical [address], pregnancyHistory Center Carriage [address], [address] [place], restrictive 120, [place], [id number], [place], [address]. [place], tel:+ tel: [phone] , [place]. tel: [phone] Roshan Avalos Routine Care, Oct-2 Pamella Referring In Womens [id number] 7-201 Jeanie. Provider: Health LACEY, weeks gestation 5 [address], PO Box of Medical [address], pregnancyHistory Center Carriage [address], [address] [place], restrictive 120, [place], [id number], [place], [address]. [place], tel:+ tel: [phone] , [place]. tel: [phone] Roshan Avalos Routine Care, Aug-2 Pamella Referring In Womens [id number] 0-201 Jeanie. Provider: Health LACEY, weeks gestation 5 [address], PO Box of Medical [address], pregnancyHistory Center Carriage [address], [address], restrictive 120, [place], , [place], [address]. [place], tel:+ tel: [phone] , [place]. tel: [phone] Roshan Avalos Routine Care, Aug- Pamella Referring In Womens [id number] 3-201 Jeanie. Provider: Health LACEY, weeks gestation 5 700 [address], PO Box of Medical [address], pregnancyHistory Center Carriage [address], [address] [place], restrictive 120, [place], [id number], [place], [address]. [place], tel:+ tel: [phone] , [place]. tel: [phone] Roshan Avalos Routine Care, Oct-0 Pamella Referring In Womens [id number] 6-201 Jeanie. Provider: Health LACEY, weeks gestation 5 [address], PO Box of Medical [address], pregnancyHistory Center Carriage [place], [facility] , Darren [place], [place], restrictive 120, [place], [id number], [place], [address]. [place], tel: tel: [phone] , [place]. tel: [phone] Roshan Avalos Sep-2 Pamella Referring In Womens 2-201 Jeanie. Provider: Alexander RAHMAN, 5 700 Jeanie PO Box Medical Pamella L, 1522, Center [address], [facility], 120, [place] , [facility], [place], tel: [phone] [place], , [place]. [id number]. tel: tel: [phone] Roshan Avalos Sep-1 [place] Referring In Womens 0-201 Rosemary. Provider: Alexander RAHMAN, 5 700 Jeanie PO Box Medical Pamella L, 1522, Center [address] Tori, [facility], 120, [place] , [facility], [place], tel: [phone] [place], , [place]. [id number]. tel: tel: [phone] Roshan Avalos Apr-0 Pamella Referring In Womens 8-201 Jeanie. Provider: Health LACEY, [address], PO Box Medical [address], Center Carriage Dr Tori, [place], 120, [place], [id number], [place], [address]. [facility], tel:+ tel: [phone] , [place]. tel: [phone] Family History Family Member Diagnosis Age At [...] Authorization(s) [employer] - Medicaid [place] [id number] [facility] [id number] [facility] [id number] Social History Type Description Quantity Date Captured Unknown Vital Signs Date / Height Weight BMI [...] Complete OB Ultrasound > 14 Ordered Weeks (66512) Future Order: Lab Order Pap Smear With [...]
--- OUTSIDE RECORDS SUMMARY | 2018-03-29 07:12 | External Medical Summary | Continuity of Care Document ---
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 Alexander RAHMAN, 7 700 PO Box Medical 15[address], Center Dr Tori, [place], 120, [id number], [place] [facility], tel:+ [phone] , . tel: [phone] Roshan Avalos Pap Smear Sep- Pamella Referring In Womens Screening, Jeanie. Provider: Alexander RAHMAN, CervixEncounter for [address], PO Box suprvsn of normal Medical [address], , first Center Carriage [place], [id number] weeks Darren Adler [place], gestation of 120, [place], [id number], [place], [address]. [place], tel:+ tel:[phone] , . tel: [phone] Roshan Mcfarland for Pamella Referring In Womens surveillance of -201 Jeanie. Provider: Alexander RAHMAN, implantable [address], PO Box subdermal Medical [address] 15[address], contraceptiveEncoun Center Carriage [place] for Darren Adler [place], surveillance of 120, [place], [id number], [place], [address]. [place] contraceptives [place], tel: tel:[phone] , . tel: [phone] Roshan Avalos Mastitis w/out March- Pamella Referring In Womens abscess 6-201 Jeanie. Provider: Alexander RAHMAN, [address], PO Box Medical [address] 15[address], Center Carriage Dr Tori, [place], 120, [place], [id number], [place], [address]. [place], tel:+ tel:[phone] , [place]. 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 Provider: Alexander RAHMAN, w/o abn findings 7 [address], PO Box Medical [address] 15[address], Center Carriage Dr Tori, [place], 120, [place], [id number], [place], [address]. [place], tel:+ tel:+ [phone] , [place]. tel: [phone] Roshan Avalos Sep-0 Martínez Referring In Womens 7-201 [place]. Provider: Alexander RAHMAN, 6 [address], PO Box Medical [address] 15[address], Center Carriage Dr Tori, [place], 120, [place], [id number], [place], [address]. [place], tel:+ tel:+ [phone] , [place]. tel: [phone] Roshan Avalos Encounter for Dec-3 Pamella Referring In Womens initial 0-201 Jeanie. Provider: Alexander RAHMAN, prescription of [address], PO Box other Medical [address] 15[address], contraceptivesEncou Center Carriage jovanna Valle for , [place], test, result 120, [place], [id number], [place], [address]. [place], tel:+ tel: [phone] , [place]. tel: [phone] Roshan Avalos Dec-1 Pamella Referring In Womens Follow-Up, Routine 4-201 Jeanie. Provider: Alexander RAHMAN, 5 [address], PO Box Medical [address] 15[address], Center Carriage Dr Tori, [place], 120, [place], [id number], [place], [address]. [place] tel: tel: [phone] , [place]. tel: [phone] Roshan Avalos Routine Care, Nov-0 Pamella Referring In Womens [id number] 5-201 Jeanie. Provider: Alexander RAHMAN, weeks gestation of [address], PO Box pregnancyHistory of [facility] 818 N 1522, gastric restrictive Center Carriage [place], [place], 120, [place], [id number], [place], [address]. [place], tel:+ tel: [phone] , [place]. tel: [phone] Roshan Avalos Routine Care, Pamella Referring In Womens [id number] 7-201 Jeanie. Provider: Alexander RAHMAN, weeks gestation of [address], PO Box pregnancyHistory of [place] [id number] N 1522, gastric restrictive Center Carriage [address], [place], 120, [place], , [place], [address]. [place], tel: tel: [phone] , [place]. tel: [phone] Roshan Avalos Routine Care, Pamella Referring In Womens [id number] 0-201 Jeanie. Provider: Alexander RAHMAN, weeks gestation of 5 700 [address] [place], PO Box pregnancyHistory of [facility] 8[address] N 1522, gastric restrictive Center Carriage [address], [place], 120, [place], , [place], [address]. [place], tel: tel: [phone] , [place]. tel: [phone] Roshan Avalos Routine Care, Pamella Referring In Womens [id number] 3-201 Jeanie. Provider: Alexander RAHMAN, weeks gestation of [address], PO Box pregnancyHistory of [facility] 818 N 1522, gastric restrictive Center Carriage [address], [place], 120, [place], [id number], [place], [address]. [place], tel: tel: [phone] , [place]. tel: [phone] Roshan Avalos Routine Care, Oct-0 Pamella Referring In Womens [id number] 6-201 Jeanie. Provider: Alexander RAHMAN, weeks gestation of 5 [address], PO Box pregnancyHistory of Medical 8[address] 1522, gastric restrictive Center Carriage [place], surgery , [facility], [place], 120, [place], [id number], [place], [address]. [place], tel: tel: [phone] , [place]. tel: [phone] Roshan Avalos Sep-2 Pamella Referring In Womens 2-201 Jeanie. Provider: Alexander RAHMAN, 5 700 Jeanie PO Box Medical Pamella L, 1522, Center [address], [place], 120, [place] , [facility], [place], tel: [phone] [place], , [place]. [id number]. tel: tel: [phone] Roshan Avalos Sep-1 [place] Referring In Womens 0-201 Rosemary. Provider: Alexander RAHMAN, 5 700 Jaenie PO Box Medical Pamella L, 1522, Center [address], [place], 120, [place] [id number], [facility], [place], tel: [phone] [place], , [place]. [id number]. tel: tel: [phone] Roshan Avalos Apr-0 Pamella Referring In Womens 8-201 Jeanie. Provider: Alexander RAHMAN, 5 [address], PO Box Medical [address] 15[address], Center Carriage Dr Tori, [place], 120, [place], [id number], [place], [address]. [place], tel: tel:[phone] , [place]. tel:[phone] Family History Family Member Diagnosis Age At [...] Record Payers Payer name Insurance type Covered green party ID Authorization(s) [employer] - Medicaid MC [id number] [facility] [id number] [facility] [id number] Social History Type Description Quantity Date Captured [...]
--- OUTSIDE RECORDS SUMMARY | 2018-03-29 07:12 | External Medical Summary | Continuity of Care Document ---
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) w/o abn findings Follow-Up, Routine - Encounter for suprvsn of normal - , third trimester 32 weeks gestation of - Routine Care, Primagravida [...] third trimester 28 weeks gestation of - Encounter for suprvsn of normal - , third trimester 34 weeks gestation of - Active Irregular Bleeding Active Procedures Procedure Date OB Visit No Charge - UTILIZATION REVIEW RN Immuniz admnin, 1 vac, sngl/combo 19 Yrs + TDAP VACCINE >7 IM Results Test Name Date and Time Measure Units Reference Range Abnormal Flag Comments Unknown Advance Directives Directive Yes / No Effective Date File Name Unknown Encounters Encounter Practice Location Reason(s) Diagnoses Date Provider Care Team Description For Visit Members Roshan [place] Encounter for Apr-1 Pamella Referring In Womens suprvsn of normal 8-201 Jeanie. Provider: Health PA, , third [address], [email or web address] weeks Medical [address], gestation of [facility] [place], [place], [place], 120, [place], [id number], [place], [address]. [place], tel: tel: [phone] , [place]. tel: [phone] Roshan [place] Encounter for Apr-0 Soy Referring In Womens suprvsn of normal 4-201 Lewis. 700 Provider: Health PA, , third 8 Medical Jeanie [address] [email or web address] weeks Center Pamella L, 1522, gestation of [place], 120, Medical [place], [facility] , [place], [facility] 120, [place] [id number] [place], tel: , [place]. [place], tel: [phone] [phone] tel:[phone] Roshan [place] Encounter for Mar-2 Pamella Referring In Womens suprvsn of normal 1-201 Jeanie. Provider: Health PA, , third [address], [address] [email or web address] weeks Medical [address], gestation of [facility] [place], [place], 120, [place], [id number], [place], [address]. [place], tel: tel: [phone] , [place]. tel: [phone] Roshan [place] Encounter for Mar-0 Pamella Referring In Womens suprvsn of normal 7-201 Jeanie. Provider: Health PA, , third [address], [address] [email or web address] weeks Medical [address], gestation of [facility] [place], [place], [place], 120, [place], [id number], [place], [address]. [place], tel:+ tel: [phone] , [place]. tel: [phone] Roshan [place] Encounter for Feb-1 Pamella Referring In Womens suprvsn of normal 4-201 Jeanie. Provider: Health PA, , second [address], [address] [email or web address] weeks Medical [address], gestation of [facility] [place], [place], 120, [place], [id number], [place], [address]. [place], tel:+ tel: [phone] , [place]. tel: [phone] Roshan [place] Dec- Pamella In Womens 2-201 Jeanie. Health PA, 8 700 [address] Medical [address], [place], [facility], 120, [id number], [place], [place], tel: [phone] , [place]. tel: [phone] Roshan [place] Encounter for Jaguar-3 Pamella Referring In Womens suprvsn of normal 1-201 Jeanie. Provider: Health PA, , second [address], [address] [email or web address] weeks Medical [address], gestation of [facility] [place], [place], 120, [place], [id number], [place], [address]. [place], tel:+ tel: [phone] , [place]. tel: [phone] Roshan [place] Encounter for Jaguar-0 Pamella Referring In Womens suprvsn of normal 3-201 Jeanie. Provider: Health PA, , second [address], [address] [email or web address] weeks Medical [address], gestation of [facility] [place], [place], [place], 120, [place], [id number], [place], [address]. [place], tel:+ tel: [phone] , [place]. tel: [phone] Roshan [place] Encounter for Jaguar-0 Pamella Referring In Womens Ultrasound suprvsn of normal 3-201 Jeanie. Provider: Health PA, , second [address], [address] [id number] weeks Medical [address], gestation of [facility] [place], [place], 120, [place], [id number], [place], [address]. [place], tel: tel: [phone] , [place]. tel: [phone] Roshan [place] Encounter for Nov-2 Pamella Referring In Womens suprvsn of normal 9-201 Jeanie. Provider: Health LACEY, , second [address], [address] [email or web address] weeks Medical [address], gestation of [facility] [place], [place], 120, [place], [id number], [place], [address]. [place], tel: tel:[phone] , [place]. tel: [phone] Roshan [place] Pap Smear Nov-0 Pamella Referring In Womens Screening, Jeanie. Provider: Alexander RAHMAN, CervixEncounter [address], PO Box for suprvsn of Medical [address], normal , [facility] [place], first [email or web address] [place], weeks gestation 120, [place], [id number], [place], [address]. [place], tel: tel: [phone] , [place]. tel: [phone] Roshan [place] Enc for May-1 Pamella Referring In Womens surveillance of -201 Jeanie. Provider: Alexander RAHMAN, implantable [address], PO Box subdermal Medical [address], contraceptiveEnco [facility] [place], surveillance of 120, [place], [id number], [place], [address]. [place] contraceptives [place], tel: tel: [phone] , [place]. tel: [phone] Roshan [place] Mastitis w/out May-2 Pamella Referring In Womens abscess 6-201 Jeanie. Provider: Alexander RAHMAN, [address], PO Box Medical [address], [facility] [address] Tori, [facility] [place], [place], 120, [place], [id number], [place], [address]. [place], tel:+ tel:[phone] , [place]. tel: [phone] [facility] [place] [facility] for grey percher Jaguar-1 Pamella Referring In Womens exam (general) 3-201 Jeanie. Provider: Health PA, (routine) w/o abn [address], PO Box findings Medical [address], [facility] [address] [address] Tori, [facility] [place], [place], 120, [place], , [place], [address]. [place], tel:+ tel:[phone] , [place]. tel: [phone] Roshan [place] Sep-0 Martínez Referring In Womens 7-201 [place]. Provider: Health PA, [address], PO Box Medical [address], [facility] [address] Tori, [place], [place], 120, [place], , [place], [address]. [place], tel:+ tel: [phone] , [place]. tel: [phone] Roshan [place] Encounter for Dec-3 Pamella Referring In Womens initial 0-201 Jeanie. Provider: Health PA, prescription of [address], PO Box other Medical [address], contraceptivesEnc [facility] arcenio Valle for , [place], test, 120, [place], [id number], [place], [address]. [place], tel:+ tel: [phone] , [place]. tel: [phone] Roshan [place] Dec-1 Pamella Referring In Womens Follow-Up, 4-201 Jeanie. Provider: Health PA, Routine [address], PO Box Medical [address], [facility] [address] [address] Tori, [place], [place], 120, [place], [id number], [place], [address]. [place], tel:+ tel: [phone] , [place]. tel: [phone] Roshan [place] Routine Care, Nov-0 Pamella Referring In Womens [id number] 5-201 Jeanie. Provider: Alexander RAHMAN, weeks gestation 5 [address], PO Box of Medical [address], pregnancyHistory [facility] [address], [address], restrictive 120, [place], [id number], [place], [address]. [place], tel:+ tel: [phone] , [place]. tel: [phone] Roshan [place] Routine Care, Pamella Referring In Womens [id number] 7-201 Jeanie. Provider: Alexander RAHMAN, weeks gestation 5 [address], PO Box of Medical [address], pregnancyHistory [facility] [address] [place], [place], restrictive 120, [place], [id number], [place], [address]. [place], tel: tel: [phone] , [place]. tel: [phone] Roshan [place] Routine Care, Pamella Referring In Womens [id number] 0-201 Jeanie. Provider: Alexander RAHMAN, weeks gestation 5 [address], PO Box of Medical [address], pregnancyHistory [facility] [address], [address], restrictive 120, [place], [id number], [place], [address]. [place], tel: tel: [phone] , [place]. tel: [phone] Roshan [place] Routine Care, Pamella Referring In Womens [id number] 3-201 Jeanie. Provider: Alexander RAHMAN, weeks gestation [address], PO Box of Medical [address], pregnancyHistory [facility] [address], [address], restrictive 120, [place], [id number], [place], [address]. [place], tel: tel: [phone] , [place]. tel: [phone] Roshan [place] Routine Care, Oct-0 Pamella Referring In Womens [id number] 6-201 Jeanie. Provider: Health LACEY, weeks gestation 5 [address], PO Box of Medical [address], pregnancyHistory [facility] [place], of [facility] , [place], [place], restrictive 120, [place], [id number], [place], [address]. [place], tel: tel: [phone] , [place]. tel: [phone] Roshan [place] Sep-2 Pamella Referring In Womens 2-201 Jeanie. Provider: Alexander RAHMAN, 5 700 Jeanie PO Box Medical Pamella L, 1522, Center [address], [facility], 120, [place] , [facility], [place], tel: [phone] [place], , [place]. [id number]. tel: tel: [phone] Roshan [place] Sep-1 Holdeman Referring In Womens 0-201 Rosemary. Provider: Alexander RAHMAN, 5 700 Jeanie PO Box Medical Pamella L, 1522, Center [address], [facility], 120, [place] [id number], [facility], [place], tel: [phone] [place], , [place]. [id number]. tel: tel: [phone] Roshan [place] Apr-0 Pamella Referring In Womens 8-201 Jeanie. Provider: Alexander RAHMAN, 5 [address], PO Box Medical [address], [facility] [address] [address], [place], [place], 120, [place], [id number], [place], [address]. [place], tel: tel:[phone] , [place]. tel: [phone] Family History Family Member Diagnosis Age At [...] Authorization(s) [employer] - Medicaid MC [id number] [employer] - Medicaid MC [id number] [facility] [id number] [facility] [id number] Social History Type Description Quantity Date Captured Alcohol Use Details No Caffeine Use Details Unknown Tobacco Use Status Smoking Status Former smoker Vital Signs Date / Height Weight BMI Pulse Blood Temperature Respiratory Body Head BMI Time: Rate Pressure Rate Surface Circumference percentile Area 207.70 30.6 /2018 lbs 7 mm[Hg] 11:30 kg/m AM eter (2) Chief Complaint And Reason For Visit Unknown Chief Complaint And Reason For Visit Reason For Referral Reason For Referral Unknown Plan Of Care Date Type Action Status Goal Lifestyle education regarding completed diet Appointment Lora [place] BOOKED Future Order: Radiology Order Complete OB Ultrasound > 14 Ordered Weeks (86641) Future Order: Lab Order Pap Smear With [...]
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
[2018-03-29 07:56] VITALS: BMI 29.8
[2018-03-29] MEDS ORDERED: DiphenhydrAMINE 50 MG/ML INJECTION IVP PRN (13:36)
[2018-03-29] MEDS ORDERED: ONDANSETRON 4 MG/2 ML INJECTION IVP PRN (13:36)
[2018-03-29] MEDS ORDERED: NALOXONE 0.4 MG/ML INJECTION IVP PRN (13:36)
[2018-03-29] MEDS ORDERED: ROPIVACAINE 1% 10MG/ML INJ 200 MG, SUFentanil 50 MCG in NS 100 ML EPI PRN (13:36)
--- NOTE | 2018-03-29 13:36 | Anesthesia Preoperative Report ---
Anesthesia Epidural/Spinal Rec - Date and Time Date: 03/29/18 Preoperative Diagnosis: Procedure: Labor Epidural Plan: Epidural - Vital Signs Vital Signs: Temperature 98.1 F 03/29/18 07:43 Pulse Rate 84 03/29/18 07:43 Respiratory Rate 16 03/29/18 07:43 Blood Pressure 119/74 03/29/18 07:43 Pulse Oximetry 99 03/29/18 07:43 /Para: P:1 - Medictaions & Allergies Inpatient Medications: Current Medications Acetaminophen (Tylenol) 500 - 1,000 mg PO Q4H PRN PRN Reason: Pain Al Hydroxide/Mg Hydroxide (Maalox Plus) 30 ml PO Q3H PRN PRN Reason: Indigestion Calcium Carbonate (Tums) 500 - 1,000 mg PO Q2H PRN PRN Reason: Indigestion Last Admin: 03/29/18 08:08 Dose: 1,000 mg Carboprost Tromethamine (Hemabate) 250 mcg IM O PRN PRN Reason: .Downtime Dextrose/Lactated Ringer's (Dextrose 5%-Lactated Ringers) 1,000 mls @ 125 mls/ hr IV .Q8H PRN PRN Reason: Labor Lactated Ringer's (Lactated Ringers) 1,000 mls @ 999 mls/hr IV .Q1H1M PRN Oxytocin (Pitocin Drip) 30 unit in 500 mls @ 2 mls/hr IV .Q24H PRN; Protocol PRN Reason: Induction/Augmentation Lidocaine HCl (Xylocaine-Mpf 1% Vial) 0.2 mg ID O PRN PRN Reason: IV Start Methylergonovine Maleate (Methergine) 0.2 mg IM O PRN Misoprostol (Cytotec) 800 mcg OK ONCE PRN Allergies/Adverse Reactions: Allergies Allergy/AdvReac Type Severity Reaction Status Date / Time benzonatate Allergy Unknown Verified 12/01/17 12:55 - Home Medications Home Medications: Home Medications Medication Instructions Recorded Confirmed Type Fluticasone Propionate 16 gm NS DAILY #0 03/09/13 History Omeprazole 03/14/18 History Vitamins 03/14/18 History Tums 03/14/18 History Tylenol 03/14/18 History Zantac 03/14/18 History Zofran 03/14/18 History - Medical History Gastrointestional: Reports: Other (gastric sleeve surgery - ) Neuro/Musculoskeletal: Reports: Depression, Seizures (2012 - no meds) Other History: Reports: Now Comment Only: Anesthesia Reactions (had to be intubated for wt. loss surgery) - Surgical History GI Surgery/Treatments: Reports: Cholecystectomy (2014) Reproductive Surgery/Treatment: DENIES: Section Anesthesia Reactions: None Hx Family Anesthesia Reaction: No History of Motion Sickness: No - Social History Smoking Status: Former smoker Second Hand Exposure: No Substance Use Type: does not use Alcohol Intake Frequency: does not drink - Pertinent Findings Lab Data: CBC and BMP 03/29/18 07:29 EKG Rhythm: Normal Sinus Rhythm - Physical Exam Respiratory Exam: lungs clear Cardiovascular Exam: regular rate and rhythm, no murmur - Airway Assessment Mallampati Score: II TMD: 3 Fingerbreadths Neck Extension: good Overall Assessment: no airway concerns - ASA ASA Score: 2 - Discussion Discussion: Discussed risks/options/alternatives of anesthesia and questions answered. Patient consents. Nursing pain assessment noted. Anesthesia Discussion: spouse Attestation Statement: Prior to the delivery of any anesthetic medication, I examined the patient, developed the plan, obtained the patient's consent and discussed the risk and benefits of the procedure with the patient/guardian.
[2018-03-29] MEDS ORDERED: HYDROCORTISONE 2.5% CREAM 30gm RECTALLY PRN (15:07)
[2018-03-29] MEDS ORDERED: DiphenhydrAMINE 25 MG CAPSULE PO PRN (15:07)
[2018-03-29] MEDS: CALCIUM CARBONATE Chewable 500mg TABLET PO PRN ×2 (15:43→22:48)
[2018-03-29] MEDS: IBUPROFEN 800 MG TABLET PO SCH ×2 (18:17→23:06)
--- NOTE | 2018-03-29 20:36 | Labor and Delivery Note ---
DATE OF DELIVERY 03/29/2018 NARRATIVE Ms. Phoenix progressed well in first stage of labor. She began to push with excellent effort at the complete and +2 station. She pushed for a few moments, delivering the head in the OA presentation. Baby was bulb suctioned on the perineum. With a further push baby was delivered in total. Baby was then placed on mother's abdomen and further bulb suctioned. After almost three minutes the cord was doubly clamped. It was cut by the baby's father, Bernardo. This is a liveborn male with Apgars of 8/9/9. The placenta subsequently delivered spontaneously intact. It had a normal configuration and normal- appearing three-vessel cord. The perineum had a second-degree midline laceration that was repaired in the usual fashion with a 2-0 Vicryl. There were bilateral superficial periurethral lacerations that were hemostatic and therefore not repaired. Total blood loss was approximately 300 mL. At the time of this dictation mother and baby are doing well. JESSE
[2018-03-29] MEDS: HYDROCODONE/APAP 5mg/325mg TABLET PO PRN (21:17)
[2018-03-30] MEDS: HYDROCODONE/APAP 5mg/325mg TABLET PO PRN ×4 (00:57→19:20)
[2018-03-30] MEDS: IBUPROFEN 800 MG TABLET PO SCH ×3 (02:26→16:55)
[2018-03-30] MEDS: CALCIUM CARBONATE Chewable 500mg TABLET PO PRN ×2 (03:23→14:07)
[2018-03-30] MEDS: MAG-AL + SIM ORAL LIQUID 30ml PO PRN ×3 (05:43→21:31)
--- NOTE | 2018-03-30 07:18 | OB/GYN Progress Note ---
OB-PP Progress Note - General Maternal Group B Strep: Negative Maternal blood type: AB+ Maternal Rubella Status: Immune - Subjective Date: 03/30/18 Lochia: Minimal Pain: controlled Voiding: voiding Nausea or Vomiting Present: Yes (also reports heartburn) - Objective Vital Signs: Last Vital Signs Temp 97.5 F 03/30/18 06:00 Pulse 66 03/30/18 06:00 Resp 16 03/30/18 06:00 BP 123/80 03/30/18 06:00 Pulse Ox 100 03/30/18 06:00 General: alert and oriented Abdomen: fundus firm, non-tender Extremities: non-tender Edema: none Edema Degree: 0 Laboratory: Laboratory Results - last 24 hr 03/29/18 03/29/18 07:29 07:29 WBC 9.1 RBC 4.00 Hgb 11.4 L Hct 35.1 L MCV 87.8 MCH 28.5 MCHC 32.5 RDW Std Deviation 41.6 Plt Count 217 MPV 10.8 Blood Type AB Positive Antibody Screen Negative - Assessment Assessment: SP, - Plan Plan: routine care Expected date of discharge: 03/31/18
[2018-03-30] MEDS: DOCUSATE CALCIUM 240 MG CAPSULE PO SCH (08:48)
--- NOTE | 2018-03-30 09:09 | Anesthesia Postoperative Note ---
- Date and Time Date: 03/30/18 Time: 09:05 - Status Patient Participated in Evaluation: Patient Participated in Person Vital Signs: Temperature 97.5 F 03/30/18 06:00 Pulse Rate 66 03/30/18 06:00 Respiratory Rate 16 03/30/18 06:00 Blood Pressure 123/80 03/30/18 06:00 Pulse Oximetry 100 03/30/18 06:00 Respiratory Function: Airway Patent, Regular Respirations Cardiovascular Function: Regular Pulse Mental Status: Alert and Oriented Pain Intensity: 0 Hydration: Taking PO Fluids Complications During Recover: None Apparent - Follow-Up Instructions Instructions: Per Surgeon
[2018-03-31] MEDS: HYDROCODONE/APAP 5mg/325mg TABLET PO PRN ×3 (00:29→13:54)
[2018-03-31] MEDS: IBUPROFEN 800 MG TABLET PO SCH ×2 (01:15→09:12)
[2018-03-31 01:56] VITALS: RESP 16
[2018-03-31] MEDS: MAG-AL + SIM ORAL LIQUID 30ml PO PRN (03:30)
[2018-03-31] MEDS: DOCUSATE CALCIUM 240 MG CAPSULE PO SCH (09:12)
[2018-03-31 09:33] VITALS: BP 115/73; PULSE 86; TEMP 98.3; O2SAT 99
--- NOTE | 2018-03-31 10:33 | Progress Note ---
OB PP Progress Note Free Text - Date Date: 03/31/18 - Progress Note Progress Note: vss af doing well plan dc today instructions reviewed rx norco and jimmy q&a-krb
== END 2018-03-31 14:15 | disposition home or self-care (01) | DRG 775 ==
LOC: MC 07:06
PROVIDERS: ADMIT Obstetrics & Gynecology; ATTEND Obstetrics & Gynecology